=== PATIENT | male | born 1950 | race Caucasian/White ===

== ENCOUNTER → 2018-04-19 | Outpatient (CLI) | payer MEDICARE, OTHER ==
[~2018-04-19] MED LIST: AMOXICILLIN500 M1 PO; ARICEPT 5 MG TAB5 MG PO; ASPIR 8181 MG PO; ASPIRIN EC81 M1 PO; ATORVASTATIN CA40 MG PO; BENADRYL25 MG PO; CARDIZEM CD180 MG PO; CARDIZEM CD240 MG PO; CENTRUM SILVER1 EAC2 PO; CILOSTAZOL 100100 MG PO; D3 + K2 DOTS 11 EACH PO; DEXILANT60 MG PO; DILTIAZEM 24HR120 M2 PO; DULCOLAX5 MG PO; EFFIENT10 MG PO; FISH OIL 1,001000 M1 PO; FISH OIL 1,001000 M2; FISH OIL 1,001000 M2 PO; FISHOIL PO; FLOMAX0.4 MG PO; FOLIC ACID 40400 MC1 PO; GABAPENTIN 100100 MG PO; GABAPENTIN100 MG PO; HEALTHY HEART1 EAC1 PO; IBUPROFEN; IMDUR 30 MG TAB30 M1 PO; IMDUR 60 MG TAB60 M1 PO; INTEGRA PLUS C1 EAC1 PO; KEFLEX500 MG PO; LASIX 40 MG TAB40 M2 PO; LISINOPRIL2.5 MG PO; LOPRESSOR 50 MG50 M1 PO; LOPRESSOR50 PO; MAG-AL PLUS XS30 ML PO; MELATONIN3 MG PO; MILK OF MA2400 MG/10 PO; MIRALAX17 GM PO; MULTIVITAMIN; MULTIVITAMINS PO; NEURONTIN 300300 M1 PO; NEXIUM40 MG PO; NITROGLYCERIN0.4 MG SUBLING; NITROLINGUAL12 GM SPRAY; NORVASC2.5 MG PO; OLANZAPINE10 MG PO; OMEGA-31000 M1 PO; PERCOCET PO; PLAVIX 75 MG TA75 M1 PO; POTASSIUM20 PO; PRILOSEC40 MG PO; PROTONIX40 M1 PO; RANEXA1000 MG PO; RANEXA500 MG PO; SAW PALMETTO450 MG PO; SAW PALMETTO500 MG PO; SPIRIVA; THERA-M CAPLET1 EACH PO; TOPROL XL100 MG PO; TYLENOL325 MG PO; VITAMIN B COMP1 EAC7 PO; VITAMIN B-1100 M1 PO; VITAMIN B-12500 MCG PO; VITAMIN D 5050000 I1 PO; VITAMIN D1000 UNI1 PO; VITAMIN D31000 UNI2 PO; ZANTAC 150MG T150 MG PO; ZOCOR 20 MG TAB20 M1 PO; ZOCOR40 MG PO; ZOFRAN 4 MG ORAL4 M1 DIS; ZYPREXA 5 MG TAB5 M2 PO; ZYPREXA PO; ZYPREXA2.5 MG PO
[2018-04-19 07:55] LABS: CREATININE 1.2 mg/dL (0.6-1.3)
== END ==
LOC: M.LAB 04-11 15:25 → M.CT 07:15 → M.LAB 07:30
PROVIDERS: Surgery
DX: I71.4 Abdominal aortic aneurysm, without rupture (principal); I65.23 Occlusion and stenosis of bilateral carotid arteries; I70.213 Atherosclerosis of native arteries of extremities with intermittent claudication, bilateral legs; I70.0 Atherosclerosis of aorta; I10 Essential (primary) hypertension

== ENCOUNTER 2019-02-13 18:52 | Emergency (ER) | payer MEDICARE, OTHER ==
[~2019-02-13] VITALS: Ht 172.7 cm; Wt 95.3 kg
[~2019-02-13 18:52] MED LIST changes: +FOLIC ACID 1 MG1 MG PO; -FOLIC ACID 40400 MC1 PO; -NITROLINGUAL12 GM SPRAY; +NITROSTAT0.4 M1 SUBLING; +PROAIR HFA8.5 GM PO; +PROSCAR 5MG TABL5 MG PO; +SPIRIVA18 MCG INH; +SPIRONOLACTONE25 M1 PO; +SPIRONOLACTONE25 MG PO; +VITAMIN B-6100 MG PO; +VITAMIN D3400 UNIT PO
[2019-02-13 19:38] LABS: URINE BILIRUBIN NEGATIVE (Negative); URINE BLOOD 3+ (Negative); URINE CLARITY CLOUDY; URINE COLOR YELLOW; URINE GLUCOSE-RANDOM NEGATIVE (Negative); URINE KETONES TRACE (Negative); URINE PROTEIN 2+ (Negative); URINE SPECIFIC GRAVITY 1.025 (1.005-1.030); URINE UROBILINOGEN 0.2 E.U./dl (0.2-1.0)
[2019-02-13 19:40] LABS: URINE LEUKOCYTES-REFLEX 2+ (Negative); URINE NITRITE-REFLEX POSITIVE (Negative)
[2019-02-13 19:48] LABS: SQUAMOUS NONE SEEN /LPF (0-3)
[2019-02-13 19:49] LABS: URINE RBC >20 Many /HPF (0-2); URINE WBC-REFLEX >25 Many /HPF (0-5); WBC CLUMPS Few (None Seen)
[2019-02-13 19:50] LABS: CRYSTALS None Seen /LPF (None Seen); HYALINE CASTS 0-3 Few /LPF (None Seen)
[2019-02-13 19:51] LABS: MUCUS None Seen strn/LPF (None Seen)
[2019-02-13 20:00] LABS: ABSOLUTE BASOPHILS 0.1 thou/uL (0.0-0.2); ABSOLUTE EOSINOPHILS 0.2 thou/uL (0.0-0.7); ABSOLUTE LYMPHOCYTES 1.2 thou/uL (0.8-5.3); ABSOLUTE MONOCYTES 0.8 thou/uL (0.0-1.2); BASOPHILS 0.7 %; EOSINOPHILS 2.5 %; HEMATOCRIT 28.7 % (42.0-52.0); HEMOGLOBIN 9.5 gm/dL (14.0-18.0); LYMPHOCYTES 12.5 %; MCH 24.8 pg (26.0-34.0); MCV 75.1 fL (80.0-100.0); MONOCYTES 8.7 %; MPV 7.8 fl. (7.2-11.1); NUCLEATED RBCS 0 /100WBC; PLATELET COUNT* 368 thou/uL (150-400); POLYS 75.6 %; RBC 3.82 mil/uL (4.50-6.00); WBC 9.3 thou/uL (4.0-11.0)
[2019-02-13 20:08] LABS: CALCIUM 8.5 mg/dL (8.5-10.1)
[2019-02-13 20:12] LABS: ALBUMIN 2.5 g/dL (3.4-5.0); TOTAL BILIRUBIN 0.5 mg/dL (<0.1-1.0); TOTAL PROTEIN 6.8 g/dL (6.4-8.2)
[2019-02-13] MEDS ORDERED: BACTRIM DS TAB1 EACH PO (20:23)
[2019-02-13 20:34] VITALS: BP 125/64
== END 2019-02-13 20:40 | disposition home or self-care (01) ==
LOC: M.ERS 18:52
PROVIDERS: Nurse Practitioner Family
DX: N39.0 Urinary tract infection, site not specified (principal); E87.6 Hypokalemia; I73.9 Peripheral vascular disease, unspecified; J44.9 Chronic obstructive pulmonary disease, unspecified; F03.90 Unspecified dementia, unspecified severity, without behavioral disturbance, psychotic disturbance, mood disturbance, and anxiety; I25.10 Atherosclerotic heart disease of native coronary artery without angina pectoris; Z87.891 Personal history of nicotine dependence; Z91.041 Radiographic dye allergy status; Z88.8 Allergy status to other drugs, medicaments and biological substances; Z90.2 Acquired absence of lung [part of]

== ENCOUNTER → 2019-04-30 | Outpatient (CLI) | payer MEDICARE, OTHER ==
[~2019-04-30] MED LIST changes: +BACTRIM DS TAB1 EACH PO
--- NOTE | 2019-04-30 17:26 | CARDNUC ---
[place] [address] CARDIAC NUCLEAR IMAGING REPORT Name: THERESE HANSON Room: [facility]#: [id number] Admission: 04/30/19 Attend Phys: Gordy Case, Discharge: Date of : 54 Date of Service: 04/30/19 1725 Report #: [id number] THIS REPORT FOR: //name// ADDENDUM APPROVED REPORT Study performed: 04/30/2019 09:44:52 Exam: Nuclear Stress Test Indication: Chest pain, Dyspnea Patient Location: Out-Patient Stress Tech: Francesca Gutierrez Stress Nurse: Marisela Casey R.N. Ht: 5 ft 8 in Wt: 192 lbs BSA: 2.01 m2 BMI: 29.18 Medical History Medical History: Angina, CAD s/p stent, Fatigue, HTN, Hyperlipidemia, SOB, Weakness, Aortic Aneurysm, Dementia, upper 1/3 right lung removed r/t cancer, PVD, past smoker, uses E-Cigs with no nicotine. Medications: ASA 81 Mg, Atorvastatin, Pletal, Cardizem, Lasix, Imdur, Ranexa, Metoprolol, NTG, Effient. Allergies: Iodine, Demerol, Contrast Dyes. Cardiac Risk Factors: Age, FHX of CAD, HTN, Hyperlipidemia, SOB, Past Smoker, PVD, E-Cigarettes without Nicotine. Previous Cardiac Procedures: PCI Pretest Chest Pain Characteristics: No chest pain Exercise History: Sedentary Physical Disabilities: Dementia, unsteady/unstable gait, involuntary tremors. Meds Held (24 hrs): Pletal, Imdur, Metoprolol, Ranexa, NTG. Stress Test Details Stress Test: Pharmacologic stress testing performed using 0.4 mg of regadenoson per 5 mL given IV over 10 seconds. Reason for pharmacologic stress test: Unsteady/unstable gait, dementia, involuntary tremors.. HR Resting HR: 52 bpm Max Heart Rate (APMHR): 154 bpm Max HR Achieved: 77 bpm Target HR (85% APMHR): 130 bpm % of APMHR: 50 Recovery HR: 67 [place] [address] CARDIAC NUCLEAR IMAGING REPORT Name: THERESE HANSON Room: [facility]#: [id number] Admission: 04/30/19 Attend Phys: Gordy Case, Discharge: Date of : 54 Date of Service: 04/30/19 1725 Report #: [id number] Resting BP: 134/69 mmHg Max BP: 125/56 mmHg ECG Resting ECG: Sinus Rhythm Stress ECG: Sinus Rhythm ST Change: None Arrhythmia: None Recovery ECG: Sinus Rhythm Recovery ST Change: None Recovery Arrhythmia: None Clinical Reason for Termination: Completed protocol Stress Symptoms: Dyspnea Exercise duration: 00 min 00 sec Exercise capacity: 1.00 METs The patient had no significant cardiac symptoms with Lexiscan infusion. Nurse Comments 68 year old male presented with recent HX of CP and SOA along with Dementia, Unsteady gait and involuntary tremors. Patient perform Lexiscan Stress Test in supine position due to tremors causing artifact on ECG. Test well tolerated. Recovery unremarkable with PO caffeine, effective. Patient was escorted via wheelchair by staff and his to Nuclear Medicine for images. Patient was stable with no complaints at that time. Stress ECG Conclusion The baseline 12-lead EKG show sinus rhythm without significant ST or T wave abnormality. EKGs obtained during and post Lexiscan infusion show sinus rhythm with no significant ST or T wave changes when compared to baseline. There were no stress-induced arrhythmias. NM EXAM: Myocardial Perfusion REST/STRESS Imaging Protocol: Rest Tc-99m/Stress Tc-99m 1 day Resting Data Rest SPECT myocardial perfusion imaging was performed in supine position 30 minutes following the intravenous injection of 11.0 mCi of Tc-99m Sestamibi. Time of rest injection: 08:10 The images were gated to evaluate regional wall motion and calculate left ventricular ejection fraction. Administration Route: [place] [address] CARDIAC NUCLEAR IMAGING REPORT Name: THERESE HANSON Room: [facility]#: [id number] Admission: 04/30/19 Attend Phys: Gordy Case, Discharge: Date of : 54 Date of Service: 04/30/19 1725 Report #: [id number] Administration Site: Right AC Pharmacologic Stress Pharmacologic stress test was performed by injecting Regadenoson 0.4 mg IV push followed by the intravenous injection of 33.4 mCi of Tc-99m Sestamibi. Pharmacologic stress test performed using dobutamine initiated at 5 mcg/kg/min titrated sequentially at 10, 20, 30 and 40 mcg/kg/min to target heart rate. The radioisotope is given IV when 85% of MHR is maintained for 1 min using ; mCi of Time of stress injection: 09:45 Administration Route: IV Administration Site: Right AC Heart Rate at time of stress injection: 77 bpm. Gated Stress SPECT was performed 40 minutes after stress injection. The images were gated to evaluate regional wall motion and calculate left ventricular ejection fraction. Prone imaging was performed. Study Quality Study: Good Artifact: Mild Diaphragmatic artifact Study Data At rest, the left ventricular ejection fraction was 79%.. Post stress, the left ventricular ejection was 75%.. TID = 0.97. Perfusion Perfusion images obtained in the supine position at rest and post stress show moderately photopenia involving the basal to distal inferior wall that resolves partially with post stress prone imaging. There were no reversible defects identified. Wall Motion Normal left ventricular wall motion. Nuclear Conclusion ECG Findings: negative for ischemia Clinical Findings: negative for ischemia Nuclear Findings: negative for ischemia Exercise Capacity: not assessed Left Ventricular Function: normal Risk Study: low Perfusion study showed no reversible [place] [address] CARDIAC NUCLEAR IMAGING REPORT Name: THERESE HANSON Room: [facility] [place]#: [id number] Admission: 04/30/19 Attend Phys: Gordy Case, Discharge: Date of : 54 Date of Service: 04/30/191724 Report #: [id number] Defects of the inferior wall seen at rest and stress are likely due to diaphragmatic attenuation artifact. Global LV systolic function is normal. This is not a high risk study. <Conclusion> The baseline 12-lead EKG show sinus rhythm without significant ST or T wave abnormality. EKGs obtained during and post Lexiscan infusion show sinus rhythm with no significant ST or T wave changes when compared to baseline. There were no stress-induced arrhythmias. <ELECTRONICALLY SIGNED> By: Gordy Case MD, [facility] 04/30/195 24 24 Gordy Case MD, FACC /INF
== END ==
LOC: M.NUC 04-24 12:58
DX: I25.118 Atherosclerotic heart disease of native coronary artery with other forms of angina pectoris (principal); I10 Essential (primary) hypertension; E78.5 Hyperlipidemia, unspecified; F03.90 Unspecified dementia, unspecified severity, without behavioral disturbance, psychotic disturbance, mood disturbance, and anxiety; F17.210 Nicotine dependence, cigarettes, uncomplicated; Z95.820 Peripheral vascular angioplasty status with implants and grafts; Z79.899 Other long term (current) drug therapy; Z88.8 Allergy status to other drugs, medicaments and biological substances; Z91.041 Radiographic dye allergy status

== ENCOUNTER 2019-08-13 08:31 | Emergency (ER) | payer MEDICARE, OTHER ==
[~2019-08-13] VITALS: Ht 172.7 cm; Wt 86.2 kg
[~2019-08-13 08:31] MED LIST changes: -FOLIC ACID 1 MG1 MG PO; +FOLIC ACID1 MG PO; +LIPITOR40 MG PO
[2019-08-13] MEDS ORDERED: DILTIAZEM ER180 M2 PO (08:40)
[2019-08-13 08:57] LABS: ABSOLUTE EOSINOPHILS 0.1 thou/uL (0.0-0.7); ABSOLUTE LYMPHOCYTES 1.4 thou/uL (0.8-5.3); ABSOLUTE MONOCYTES 0.6 thou/uL (0.0-1.2); ABSOLUTE NEUTROPHILS 3.5 thou/uL (1.6-8.1); BASOPHILS 0.8 %; EOSINOPHILS 2.1 %; HEMOGLOBIN 10.4 gm/dL (14.0-18.0); LYMPHOCYTES 25.3 %; MCHC 33.6 g/dL (28.0-37.0); MCV 71.4 fL (80.0-100.0); MONOCYTES 9.8 %; MPV 7.4 fl. (7.2-11.1); NUCLEATED RBCS 0 /100WBC; PLATELET COUNT* 359 thou/uL (150-400); RBC 4.34 mil/uL (4.50-6.00); RDW-CV 16.7 % (10.5-14.5); WBC 5.7 thou/uL (4.0-11.0)
[2019-08-13 09:03] LABS: CREATININE 1.2 mg/dL (0.6-1.3); POTASSIUM 3.5 mmol/L (3.5-5.1)
[2019-08-13 09:10] LABS: ALBUMIN 3.4 g/dL (3.4-5.0); APTT 30.3 Seconds (25.0-31.3); CK-MB MASS 1.1 ng/mL (<0.5-3.6); INR 1.1; MAGNESIUM 1.9 mg/dL (1.8-2.4); PROTIME 11.5 Seconds (9.20-11.50); TOTAL BILIRUBIN 0.5 mg/dL (<0.1-1.0); TOTAL PROTEIN 7.2 g/dL (6.4-8.2)
[2019-08-13 09:45] LABS: ANISOCYTOSIS 1+; PLATELET ESTIMATE ADEQUATE; POIKILOCYTOSIS 1+
[2019-08-13 11:46] VITALS: BP 131/77
--- NOTE | 2019-08-13 15:39 | EKG ---
[place] [address] ELECTROCARDIOGRAM REPORT Name: THERESE HANSON Room: [facility]#: [id number] Admission: 08/13/19 Attend Phys: Discharge: 08/13/19 Date of : 54 Report #: [id number] THIS REPORT FOR: //name// [facility] ED Test Date: 2019-08-13 Test Time: 08:36:56 Pat Name: THERESE HANSON Department: Room: Gender: M Liquefier: : 1950 Requested By: Biju Merritt Order Number: [id number] MD: Twin Lopez Measurements Intervals [place] Rate: 61 P: 28 NY: 232 QRS: -26 QRSD: 105 T: -39 QT: 463 QTc: 467 Interpretive Statements Sinus rhythm Atrial premature complex Prolonged [place] interval Borderline left axis deviation Borderline repolarization abnormality Compared to ECG 01/14/2019 09:01:34 Atrial premature complex(es) now present T-wave abnormality no longer present Electronically Signed On 08-13-2019 15:39:21 TOWBOAT CAPTAIN by Twin Lopez [email or web address] <ELECTRONICALLY SIGNED> By: Twin Lopez MD, [facility] 08/13/19 1539 0836 0836 Twin Lopez MD, [facility] /EPI
== END 2019-08-13 11:48 | disposition home or self-care (01) ==
LOC: M.ERS 08:31
PROVIDERS: Family Medicine
DX: R07.89 Other chest pain (principal); I25.10 Atherosclerotic heart disease of native coronary artery without angina pectoris; J44.9 Chronic obstructive pulmonary disease, unspecified; Z95.2 Presence of prosthetic heart valve; Z91.041 Radiographic dye allergy status; Z88.8 Allergy status to other drugs, medicaments and biological substances; Z87.891 Personal history of nicotine dependence

== ENCOUNTER 2019-08-23 07:18 | Inpatient (IN) | payer MEDICARE, OTHER ==
[~2019-08-23] VITALS: Ht 152.4 cm; Wt 86.2 kg
[2019-08-23] VITALS (17 sets, daily range): BP systolic 121–155; BP diastolic 66–88
[~2019-08-23 07:18] MED LIST changes: +DILTIAZEM ER180 M2 PO
[2019-08-23 07:42] LABS: ABSOLUTE BASOPHILS 0.1 thou/uL (0.0-0.2); ABSOLUTE EOSINOPHILS 0.1 thou/uL (0.0-0.7); ABSOLUTE LYMPHOCYTES 1.4 thou/uL (0.8-5.3); ABSOLUTE MONOCYTES 0.5 thou/uL (0.0-1.2); ABSOLUTE NEUTROPHILS 3.7 thou/uL (1.6-8.1); BASOPHILS 1.1 %; EOSINOPHILS 2.4 %; HEMATOCRIT 31.9 % (42.0-52.0); HEMOGLOBIN 10.6 gm/dL (14.0-18.0); LYMPHOCYTES 24.2 %; MCH 23.8 pg (26.0-34.0); MCHC 33.1 g/dL (28.0-37.0); MONOCYTES 9.5 %; MPV 7.7 fl. (7.2-11.1); NUCLEATED RBCS 0 /100WBC; PLATELET COUNT* 286 thou/uL (150-400); POLYS 62.8 %; RBC 4.43 mil/uL (4.50-6.00); RDW-CV 16.8 % (10.5-14.5); WBC 5.8 thou/uL (4.0-11.0)
[2019-08-23 07:48] LABS: CREATININE 1.2 mg/dL (0.6-1.3); POTASSIUM 3.8 mmol/L (3.5-5.1)
[2019-08-23 08:02] LABS: ALBUMIN 3.5 g/dL (3.4-5.0); APTT 30.1 Seconds (25.0-31.3); CK-MB MASS 0.8 ng/mL (<0.5-3.6); INR 1.1; MAGNESIUM 1.9 mg/dL (1.8-2.4); PROTIME 11.4 Seconds (9.20-11.50); TOTAL BILIRUBIN 0.4 mg/dL (<0.1-1.0); TOTAL PROTEIN 7.5 g/dL (6.4-8.2)
[2019-08-23 08:27] LABS: CHOLESTEROL 119 mg/dL (<200); HDL CHOLESTEROL 50 mg/dL (>40); LDL CHOLESTEROL 50 mg/dL (<100); TC:HDL 2.4 Ratio (Not establshd); TRIGLYCERIDE 97 mg/dL (<150); VLDL 19 mg/dL (<40)
[2019-08-23 08:28] LABS: SERUM ASSESSMENT Clear
--- NOTE | 2019-08-23 15:52 | CARD ---
[address] [address] CARDIAC CATH REPORT Name: THERESE HANSON Room: [address] IN .R.#: [id number] Admission: 08/23/19 Attend Phys: Kelli barba Lawrence Discharge: Date of : 54 Report #: [id number] THIS REPORT FOR: //name// APPROVED REPORT Study performed: 08/23/2019 12:24:33 Patient Details Patient Status: In-Patient Room #: Event Personnel Twin Lopez MD Procedures Performed Left heart catheterization left selective coronary artery and percutaneous intervention with deployment of drug-eluting stent at site of 90% focal mid right coronary stenosis Indication Unstable angina Risk Factors Hypercholesterolemia, Hypertension Previous Procedures/Diagnoses Previous PCI Admission/Lab Medications/Medications given during procedure Angiomax bolus and infusion Procedure Narrative The patient was brought electively to the Cardiac Catheterization Laboratory and was prepped and draped in a sterile manner. The right femoral was infiltrated with 2% Lidocaine subcutaneous anesthesia. A 6 Polish sheath was inserted into the right femoral artery. Coronary angiography was performed using coronary diagnostic catheters. The right coronary system was accessed and visualized with a Diagnostic catheter. The left ventricle was accessed and visualized with a Diagnostic catheter. Left ventricular/Aortic Valve gradient assessed via catheter pullback. Left ventriculogram was performed in QUARLES projection. Pre-demployment femoral angiogram was performed . Closure device was deployed with a 6 Fr Angioseal. There was no hematoma. Diagnostic Cath [address] [address] CARDIAC CATH REPORT Name: THERESE HANSON Room: [address] IN [facility].#: [id number] Admission: 08/23/19 Attend Phys: Kelli Liu Discharge: Date of : 54 Report #: [id number] Left Main 0% narrowing LAD 20% ostial and 40% mid vessel narrowing Circumflex 40% narrowing of the proximal portion of the first marginal branch Right Coronary Large dominant right coronary artery with multiple stents throughout; there was 90% stenosis in the midportion of the vessel; there were 30% proximal 40% distal right coronary narrowings Left Ventriculography The left ventricle is normal in size with normal contractility. The left ventricular ejection fraction is estimated to be 60%. Left ventricular wall motion abnormalities are not present. There is no mitral insufficiency. Hemodynamics The aortic pressure is 140/70 mmHg with a mean of 82 mmHg. The left ventricular end diastolic pressure is 14 mmHg. There was no gradient across the aortic valve upon pullback. PCI Technique Lesion Anticoagulation was achieved with Angiomax. Percutaneous coronary intervention was performed on the mid right coronary artery. The lesion stenosis prior to intervention was 90% with ALLIE 3 flow. BALLOON DILATION A Balloon catheter 2.0 x 12, 2.75 x 12 Trek was inserted and inflated up to 18atm for 15seconds. STENT DEPLOYMENT A drug-eluting stent 2.0x15 deisi was inserted and inflated up to 18atm for 15seconds. POST STENT DEPLOYMENT BALLOON DILATION A Balloon catheter 3.0 x 12 NC trek was inserted and inflated up to 18-20atm for 15seconds. Final angiography reveals 10 % stenosis with ALLIE 3 flow. COMMENTS Percutaneous coronary intervention was complex by virtue of marked calcification and proximal tortuosity requiring a scot wire with significant manipulation to achieve satisfactory [place] [address] CARDIAC CATH REPORT Name: THERESE HANSON Room: [address] IN ..#: [id number] Admission: 08/23/19 Attend Phys: Kelli Liu Discharge: Date of : 54 Report #: [id number] Conclusion #1 significant coronary artery disease characterized by the following: A large dominant right coronary artery with multiple stents throughout and diffuse calcification and proximal tortuosity; there is 90% focal mid right coronary stenosis B 20% ostial with 40% mid LAD narrowing C 40% narrowing of the proximal portion of the prominent marginal branch of the nondominant circumflex #2 normal left ventricular systolic function,ejection fraction 60% #3 minimal elevation of left ventricular end-diastolic pressure at rest #4 successful percutaneous coronary intervention with deployment of drug-eluting stent at the site of 90% mid right coronary stenosis with 10% residual narrowing and ALLIE-3 flow to the distal vessel Recommendations Cardiac Risk Reduction Program Aggressive Medical Therapy Medications Administered Aspirin (any) Prasugrel Diagnostic Cath Approved by: Twin Lopez MD Date/Time: 08/23/2019 15:49:39 <ELECTRONICALLY SIGNED> By: Twin Lopez MD, [facility] 08/23/19 1552 1552 1552Johoracio Lopez MD, FAC /INF
[2019-08-24] VITALS: BP 140/75
[2019-08-24 03:48] VITALS: BP 169/83
[2019-08-24 05:02] LABS: HEMATOCRIT 31.9 % (42.0-52.0); HEMOGLOBIN 10.5 gm/dL (14.0-18.0); MCH 23.9 pg (26.0-34.0); MCHC 32.9 g/dL (28.0-37.0); MCV 72.5 fL (80.0-100.0); MPV 8.3 fl. (7.2-11.1); RBC 4.4 mil/uL (4.50-6.00); RDW-CV 17.4 % (10.5-14.5); WBC 6.4 thou/uL (4.0-11.0)
[2019-08-24 05:24] LABS: ALBUMIN 3.6 g/dL (3.4-5.0); CALCIUM 9.5 mg/dL (8.5-10.1); CREATININE 1.1 mg/dL (0.6-1.3); POTASSIUM 3.3 mmol/L (3.5-5.1); TOTAL BILIRUBIN 0.5 mg/dL (<0.1-1.0); TOTAL PROTEIN 7.6 g/dL (6.4-8.2); TROPONIN-I LEVEL 0.07 ng/mL (<0.06)
[2019-08-24 08:00] VITALS: BP 144/76
--- NOTE | 2019-08-24 11:10 | CON ---
[address] [address] CONSULTATION Name: THERESE HANSON Room: [address] IN M.R.#: [id number] Admission: 08/23/19 Attend Phys: Kelli Liu Discharge: Date of : 54 Report #: [id number] THIS REPORT FOR: //name// CC: Kelli Case DATE OF SERVICE: 08/23/2019 CARDIOLOGY CONSULTATION HISTORY OF PRESENT ILLNESS: The patient is a 68-year-old white male who came to the Emergency Room last night complaining of chest pain. The patient has an extensive and complicated past medical history. He has had several heart catheterizations through the years. It was not felt to be amenable to intervention and he was treated medically. However, in 2014 the patient was admitted to [facility] on the [place] and had 4 coronary artery stents placed in his right coronary artery. He actually had a repeat cardiac catheterization by Dr. Lopez in June 2017 here at [place] that showed a 75% mid and 80% distal right coronary artery in-stent restenosis. Dr. Lopez then performed successful balloon angioplasty. Apparently, no stents were placed at that time. Recently, the patient has been having frequent chest pain. He underwent a nuclear stress test in April that showed diaphragmatic attenuation, but no significant ischemia, ejection fraction 79%. Echocardiogram in January showed an ejection fraction of 60%. He actually just saw my nurse practitioner 4 days ago, who recommended that the patient be scheduled for repeat angiogram next week. However, the patient states that last night he had a prolonged episode of chest pain and finally came to the Emergency Room. He was admitted for further evaluation and treatment. He denies the pain being related to food. There was radiation to his arm. It made him short of breath. He has had no bleeding. He has no significant exertional dyspnea, palpitations or syncope. PAST MEDICAL HISTORY: Significant for previous abdominal aortic aneurysm. He had previous aortobifemoral bypass surgery in 2007. He has carotid artery stenosis and is followed by Dr. Moralez in the Vascular Clinic. He denied any leg pain. He, apparently also has an aneurysm of the thoracic aortic vessel. He has had previous back surgery, hip surgery. He had a previous subdural hematoma and required sammy drainage years ago. He has had tonsillectomy. He has a history of hypertension, hyperlipidemia. No history of diabetes. MEDICATIONS: Include aspirin, Lipitor, Pletal, diltiazem, Aricept, Proscar, Lasix, Neurontin, Imdur, metoprolol, omeprazole, Effient, Ranexa, Flomax. ALLERGIES: HE [place] [address] CONSULTATION Name: MARGIETHERESE REID ERIK Room: [address] IN M.R.#: [id number] Admission: 08/23/19 Attend Phys: Kelli Liu Discharge: Date of : 54 Report #: [id number] FAMILY HISTORY: Positive for heart disease. SOCIAL HISTORY: He is . He and his live in [place]. He is a retired police radio dispatcher. He used to smoke 2 packs of cigarettes a day for 40 years, quit in 2013. Has a history of alcohol abuse, went through detox in 2013. REVIEW OF SYSTEMS: He has a history of dementia. No history of asthma, peptic ulcer disease, liver disease, kidney disease. He had a lung cancer removed at [facility] in February of this year. PHYSICAL EXAMINATION: GENERAL: Revealed an elderly male, appeared in no distress. VITAL SIGNS: Blood pressure 140/70, pulse 60. HEENT: Mucous membranes moist. He was anicteric. Conjunctivae are pink. NECK: Supple. No jugular vein distention. CHEST: Clear to auscultation. CARDIOVASCULAR: Regular rate and rhythm. ABDOMEN: Soft. EXTREMITIES: No edema. SKIN: Cool and dry. NEUROLOGIC: Nonfocal. His ECG this morning shows a sinus rhythm, nonspecific ST-segment changes. His workup in the Emergency Room this morning showed a chest x-ray that showed no acute abnormality, actually he had a CT scan of the chest using a PE protocol. Carotid Doppler study done in July showed plaque in the right carotid, moderate plaque in the left carotid. LABORATORY DATA: Sodium 141, creatinine 1.2. Troponin 0.06. Cholesterol 119, triglyceride 97, HDL 50, LDL 50. His white blood cell count 5.8, hemoglobin 10.6. IMPRESSION AND RECOMMENDATIONS: 1. Crescendo angina. Recommend cardiac catheterization. The patient is on aspirin and Effient. 2. Peripheral arterial disease. The patient had previous aortobifemoral bypass. 3. Previous carotid stenosis, asymptomatic. 4. Previous subdural hematoma, treated with sammy hole drainage. 5. Hypertension. The patient is on a calcium teagan and beta teagan. 6. Hyperlipidemia. The patient is on a statin drug. 7. History of lung cancer. The patient had surgery in February of this year. 8. Dementia. The patient is followed by Neurology. 9. [place] [address] CONSULTATION Name: THERESE HANSON Room: [address] IN [facility].#: [id number] Admission: 08/23/19 Attend Phys: Kelli Liu Discharge: Date of : 54 Report #: [id number] 10. History of alcohol abuse. The patient no longer abuses alcohol. 11. CONTRAST REACTION. We will pretreat the patient with steroids. <ELECTRONICALLY SIGNED> By: Cade Browne MD, FACC 08/24/19 1110 1008 12Cade Browne MD, FACC /nt
--- NOTE | 2019-08-24 11:17 | EKG ---
[place] [address] ELECTROCARDIOGRAM REPORT Name: THERESE HANSON Room: [address] ADM IN M.R.#: [id number] Admission: 08/23/19 Attend Phys: Kelli Liu Discharge: Date of : 54 Report #: [id number] THIS REPORT FOR: //name// [facility] ED Test Date: 2019-08-23 Test Time: 07:22:39 Pat Name: THERESE HANSON Department: Room: [address] Gender: M Business Reporter: : 1950 Requested By: Twin Lopez Order Number: [id number] Jeanna MD: Cade Browne Measurements Intervals [place] Rate: 55 P: 9 TN: 263 QRS: -26 QRSD: 109 T: 24 QT: 502 QTc: 481 Interpretive Statements Sinus bradycardia artifact noted Prolonged TN interval Borderline left axis deviation Compared to ECG 08/13/2019 08:36:56 suparaventricular premature complex(es) not seen Electronically Signed On 08-24-2019 11:17:21 A OPERATOR by Cade Browne [email or web address] <ELECTRONICALLY SIGNED> By: Cade Browne MD, FACC 08/24/19 1117 0722 0722 Cade Browne MD, FAC /EPI
--- NOTE | 2019-08-24 11:21 | EKG ---
[place] [address] ELECTROCARDIOGRAM REPORT Name: THERESE HANSON Room: [address] ADM IN M.R.#: [id number] Admission: 08/23/19 Attend Phys: Kelli Liu Discharge: Date of : 54 Report #: [id number] THIS REPORT FOR: //name// [facility] Test Date: 2019-08-23 Test Time: 15:37:02 Pat Name: THERESE HANSON Department: Room: [facility] Gender: Trench Digger Helper: ALEJANDRO : 1950 Requested By: Biju Merritt Order Number: [id number] MD: Cade Browne Measurements Intervals [place] Rate: 62 P: 41 NC: 286 QRS: -26 QRSD: 115 T: 25 QT: 467 QTc: 475 Interpretive Statements Sinus rhythm Prolonged NC interval Nonspecific intraventricular conduction delay Borderline low voltage, extremity leads Compared to ECG 08/13/2019 08:36:56 rate has increased Electronically Signed On 08-24-2019 11:21:22 LEARNING SUPPORT SERVICES DIRECTOR by Cade Browne [email or web address] <ELECTRONICALLY SIGNED> By: Cade Browne MD, FACC 08/24/19 1121 1537 1537 Cade Browne MD, [facility] /EPI
--- NOTE | 2019-08-24 11:26 | EKG ---
[place] [address] ELECTROCARDIOGRAM REPORT Name: THERESE HANSON Room: [address] ADM IN M.R.#: [id number] Admission: 08/23/19 Attend Phys: Kelli Liu Discharge: Date of : 54 Report #: [id number] THIS REPORT FOR: //name// [facility] Test Date: 2019-08-24 Test Time: 08:30:26 Pat Name: THERESE HANSON Department: Room: [address] Gender: M Bucket Turner: MARC : 1950 Requested By: Twin Lopez Order Number: [id number] MD: Caed Browne Measurements Intervals [place] Rate: 79 P: 0 NY: 285 QRS: -29 QRSD: 104 T: 0 QT: 426 QTc: 489 Interpretive Statements Sinus rhythm Prolonged [place] interval Borderline left axis deviation Borderline T abnormalities, inferior leads Baseline wander in lead(s) V5 Compared to ECG 08/13/2019 08:36:56 no change Electronically Signed On 08-24-2019 11:26:34 TEMPORARY HELP AGENCY REFERRAL CLERK by Cade Browne [email or web address] <ELECTRONICALLY SIGNED> By: Cade Browne MD, FACC 08/24/19 1126 0830 Cade Browne MD, [facility] /EPI
[2019-08-24 13:31] VITALS: BP 158/83
[2019-08-24 16:12] VITALS: BP 119/60
[2019-08-24 20:00] VITALS: BP 143/73
[2019-08-25 00:20] VITALS: BP 144/63
[2019-08-25 04:00] VITALS: BP 131/67
[2019-08-25 07:54] VITALS: BP 147/70
[2019-08-25 09:32] VITALS: BP 147/70
[2019-08-25 10:59] VITALS: BP 147/70
--- NOTE | 2019-08-25 17:02 | EKG ---
[place] [address] ELECTROCARDIOGRAM REPORT Name: THERESE HANSON Room: [address] DIS IN M.R.#: [id number] Admission: 08/23/19 Attend Phys: Kelli Liu Discharge: 08/25/19 Date of : 54 Report #: [id number] THIS REPORT FOR: //name// [facility] Test Date: 2019-08-24 Test Time: 03:32:36 Pat Name: THERESE HANSON Department: Room: [address] Gender: M Coal Gasification Technician: RP05 : 1950 Requested By: Twin Lopez Order Number: [id number] Jeanna MD: Cade Browne Measurements Intervals [place] Rate: 82 P: -52 AL: 285 QRS: -22 QRSD: 101 T: 18 QT: 425 QTc: 497 Interpretive Statements Sinus or ectopic atrial rhythm Prolonged [place] interval Borderline left axis deviation Borderline low voltage, extremity leads Borderline prolonged QT interval Compared to ECG 08/23/2019 15:37:02 no change Electronically Signed On 08-25-2019 17:02:13 HAT CONDITIONER by Cade Browne [email or web address] <ELECTRONICALLY SIGNED> By: Cade Browne MD, [facility] 08/25/19 1702 1 1 Cade Browne MD, [facility] /EPI
== END 2019-08-25 11:15 | disposition home or self-care (01) | DRG 247 ==
LOC: M.ERS 07:18 → M.TBA-ER 08:06 → M.2W 08:06
PROVIDERS: Family Medicine; Internal Medicine; ADMIT Family Medicine
PROC: 027034Z Dilation of Coronary Artery, One Artery with Drug-eluting Intraluminal Device, Percutaneous Approach (ICD-10-PCS; principal; 2019-08-23)
PROC: 4A023N7 Measurement of Cardiac Sampling and Pressure, Left Heart, Percutaneous Approach (ICD-10-PCS; principal; 2019-08-23)
PROC: B41F1ZZ Fluoroscopy of Right Lower Extremity Arteries using Low Osmolar Contrast (ICD-10-PCS; principal; 2019-08-23)
PROC: B2151ZZ Fluoroscopy of Left Heart using Low Osmolar Contrast (ICD-10-PCS; principal; 2019-08-23)
PROC: B2111ZZ Fluoroscopy of Multiple Coronary Arteries using Low Osmolar Contrast (ICD-10-PCS; principal; 2019-08-23)
DX: I25.110 Atherosclerotic heart disease of native coronary artery with unstable angina pectoris (principal); I10 Essential (primary) hypertension; E78.5 Hyperlipidemia, unspecified; F03.90 Unspecified dementia, unspecified severity, without behavioral disturbance, psychotic disturbance, mood disturbance, and anxiety; I73.9 Peripheral vascular disease, unspecified; J44.9 Chronic obstructive pulmonary disease, unspecified; F04 Amnestic disorder due to known physiological condition; F10.11 Alcohol abuse, in remission; I71.2 Thoracic aortic aneurysm, without rupture; Z95.5 Presence of coronary angioplasty implant and graft; Z90.2 Acquired absence of lung [part of]; Z85.118 Personal history of other malignant neoplasm of bronchus and lung; Z88.8 Allergy status to other drugs, medicaments and biological substances; Z91.041 Radiographic dye allergy status; Z79.899 Other long term (current) drug therapy; Z87.891 Personal history of nicotine dependence; Z98.1 Arthrodesis status; Z80.8 Family history of malignant neoplasm of other organs or systems; Z82.49 Family history of ischemic heart disease and other diseases of the circulatory system; Z79.82 Long term (current) use of aspirin

== ENCOUNTER 2019-08-26 11:15 | Inpatient (IN) | payer MEDICARE, OTHER ==
[~2019-08-26] VITALS: Ht 152.4 cm; Wt 93.0 kg
[2019-08-26 11:18] VITALS: BP 121/61
[2019-08-26 11:41] LABS: ABSOLUTE EOSINOPHILS 0.1 thou/uL (0.0-0.7); ABSOLUTE LYMPHOCYTES 1.8 thou/uL (0.8-5.3); ABSOLUTE NEUTROPHILS 5.2 thou/uL (1.6-8.1); BASOPHILS 0.6 %; EOSINOPHILS 1.2 %; HEMATOCRIT 28.1 % (42.0-52.0); HEMOGLOBIN 9.4 gm/dL (14.0-18.0); LYMPHOCYTES 21.8 %; MCHC 33.4 g/dL (28.0-37.0); MONOCYTES 12.1 %; MPV 7.5 fl. (7.2-11.1); NUCLEATED RBCS 0 /100WBC; PLATELET COUNT* 284 thou/uL (150-400); POLYS 64.3 %; WBC 8.1 thou/uL (4.0-11.0)
[2019-08-26 11:52] LABS: CALCIUM 8.4 mg/dL (8.5-10.1); CREATININE 1.2 mg/dL (0.6-1.3); POTASSIUM 3.6 mmol/L (3.5-5.1)
[2019-08-26 11:53] LABS: APTT 27.8 Seconds (25.0-31.3); INR 1.1; PROTIME 11.4 Seconds (9.20-11.50)
[2019-08-26 12:05] LABS: ALBUMIN 3.2 g/dL (3.4-5.0); CK-MB MASS 1.1 ng/mL (<0.5-3.6); MAGNESIUM 1.8 mg/dL (1.8-2.4); TOTAL BILIRUBIN 0.3 mg/dL (<0.1-1.0); TOTAL PROTEIN 6.9 g/dL (6.4-8.2)
[2019-08-26 14:50] VITALS: BP 128/62
[2019-08-26 15:15] VITALS: BP 143/74
--- NOTE | 2019-08-26 16:21 | NUR ---
PT ADMITED ON TELE FLOOR ON 2 L NC, AOX4, FORGETFUL, TRACING SINUS LUBNA ON TERMITE EXTERMINATOR HELPER. O2 SAT 98% , VSS. ADMISSION ASSESSMENT AND HX TAKEN AT BEDSIDE. HEPARIN BOLUS GIVEN ORDERED. SEE EMAR. HEPARIN DRIP STARTED AT 1000UNITS PER HOUR. R AC IV PATENT. FALL PRECAUTION IN PLACE. CALL LIGHT AT REACH. PT DENIES PAIN, N/V WILL CONTINUE TO MONITOR.
--- NOTE | 2019-08-26 17:10 | EKG ---
[place] [address] ELECTROCARDIOGRAM REPORT Name: THERESE HANSON Room: [address] ADM IN M.R.#: [id number] Admission: 08/26/19 Attend Phys: Jaja Potts Discharge: Date of : 54 Report #: [id number] THIS REPORT FOR: //name// [facility] ED Test Date: 2019-08-26 Test Time: 11:20:13 Pat Name: THERESE HANSON Department: Room: [facility] Gender: M High Density Talc Coater Operator: CHANO : 1950 Requested By: Biju Merritt Order Number: [id number] MD: Gordy Case Measurements Intervals [place] Rate: 57 P: -41 DE: 217 QRS: -43 QRSD: 98 T: -7 QT: 455 QTc: 443 Interpretive Statements Sinus rhythm with first-degree AV block Left axis deviation Borderline repolarization abnormality Compared to ECG 08/24/2019 08:30:26 T-wave abnormality no longer present Electronically Signed On 08-26-2019 17:10:26 ADVERTISING ACCOUNT REPRESENTATIVE by Gordy Case [email or web address] <ELECTRONICALLY SIGNED> By: Gordy Case MD, FACC 08/26/19 1710 1120 1120 Gordy Case MD, FACC /EPI
--- NOTE | 2019-08-26 17:35 | NUR ---
APTT LAB ORDERED TO BE DRAWN AT 2296
[2019-08-26 20:00] VITALS: BP 116/53
[2019-08-27] VITALS: BP 132/79
[2019-08-27 04:00] VITALS: BP 121/53
[2019-08-27 04:36] LABS: HEMATOCRIT 26.2 % (42.0-52.0); HEMOGLOBIN 8.7 gm/dL (14.0-18.0); MCHC 33.4 g/dL (28.0-37.0); MCV 71.8 fL (80.0-100.0); NUCLEATED RBCS 0 /100WBC; PLATELET COUNT* 272 thou/uL (150-400); RBC 3.65 mil/uL (4.50-6.00); RDW-CV 16.9 % (10.5-14.5); WBC 6.7 thou/uL (4.0-11.0)
[2019-08-27 05:03] LABS: CALCIUM 8.7 mg/dL (8.5-10.1); POTASSIUM 4.2 mmol/L (3.5-5.1); TOTAL BILIRUBIN 0.3 mg/dL (<0.1-1.0); TOTAL PROTEIN 6.6 g/dL (6.4-8.2)
[2019-08-27 05:49] LABS: ABSOLUTE LYMPHOCYTES 0.7 thou/uL (0.8-5.3); ABSOLUTE MONOCYTES 0.1 thou/uL (0.0-1.2); ABSOLUTE NEUTROPHILS 5.9 thou/uL (1.6-8.1); PLATELET ESTIMATE ADEQUATE
[2019-08-27 05:50] LABS: ANISOCYTOSIS 1+; HYPOCHROMASIA 1+; MICROCYTES 1+; OVALOCYTES 1+; POIKILOCYTOSIS 1+
--- NOTE | 2019-08-27 06:30 | NUR ---
PATIENT PROGRESSING TOWARDS GOALS: VSS ON 2L O2 NC. PATIENT DENIES PAIN AND DISCOMFORT THIS SHIFT. REMAINS ON HEPARIN GTT PER PROTOCOL. NPO FOR CARDIOLOGY. CALL LIGHT WITHIN REACH
--- NOTE | 2019-08-27 08:03 | CON ---
[address] [address] CONSULTATION Name: THERESE HANSON Room: [address] IN M.R.#: [id number] Admission: 08/26/19 Attend Phys: Jaja Potts Discharge: Date of : 54 Report #: [id number] THIS REPORT FOR: //name// CC: Gordy Vazquez DATE OF SERVICE: 08/26/2019 INDICATION: Chest pain. HISTORY OF PRESENT ILLNESS: The patient is a very pleasant 68-year-old gentleman who is well known to myself. He has had frequent episodes of unstable angina. He has diffuse coronary disease. He recently underwent percutaneous coronary intervention to the mid right coronary artery for an area of in-stent restenosis. The patient returned to the Emergency Room with prolonged chest discomfort described as midsternal and radiating to the left arm. The patient's states that he was pale and diaphoretic and short of breath with increased respiratory rate with this. At the time of interview, he continues to have midsternal chest discomfort radiating to his left arm. By noninvasive studies, he is known to have preserved left ventricular systolic function. PAST MEDICAL HISTORY: 1. Coronary artery disease. 2. Peripheral vascular disease with abdominal aortic aneurysm and aortobifemoral bypass in 2007. 3. Carotid artery stenoses followed by Vascular Surgery. 4. Previous back surgery and hip surgery. 5. History of subdural hematoma, status post sammy drainage years ago. 6. Tonsillectomy. 7. Hypertension. 8. Hyperlipidemia. 9. Recent lung cancer, status post resection. HOME MEDICATIONS: Albuterol p.r.n., aspirin 81 mg daily, Lipitor 40 mg daily, vitamin D 400 units daily, cilostazol 100 mg b.i.d., vitamin B12 at 1000 mcg daily, diltiazem ER 360 mg daily, fish oil 1000 mg b.i.d., Aricept 5 mg daily, Proscar 5 mg daily, folate 1 mg daily, furosemide 40 mg daily, gabapentin 300 mg b.i.d., Imdur 240 mg daily, metoprolol succinate 100 mg b.i.d., Centrum Silver tablets one daily, Nitrostat 0.4 mg sublingual p.r.n., Zyprexa 10 mg at bedtime, Protonix 40 mg b.i.d., K-Dur 20 mEq daily, Effient 10 mg daily, vitamin B6 at 1000 mg as directed, Zantac 300 mg in the evening, ranolazine 1000 mg b.i.d., spironolactone 25 mg b.i.d., Bactrim DS 1 tablet b.i.d., Flomax 0.4 mg b.i.d., [address] [place] [address] CONSULTATION Name: MARGIETHERESEFERNY VALENCIA Room: [address] IN [facility].#: [id number] Admission: 08/26/19 Attend Phys: Jaja Potts Discharge: Date of : 54 Report #: [id number] vitamin B1 at 1000 mg daily, Spiriva 2.5 mcg daily. SOCIAL HISTORY: The patient quit smoking in 2013. He does not drink alcohol. FAMILY HISTORY: The patient's father had heart disease. ALLERGIES: IODINE and MEPERIDINE. PHYSICAL EXAMINATION: VITAL SIGNS: Stable. Blood pressure 121/61, pulse 59 and regular. GENERAL: This is a pleasant gentleman in no distress. Mood and affect appropriate. HEENT: Extraocular muscles intact. Mucous membranes are moist. NECK: Shows no jugular venous distention. There are no carotid bruits. CHEST: Reveals clear lung ledesma. CARDIOVASCULAR: Reveals a regular rhythm without gallop or murmur. ABDOMEN: Reveals normal bowel sounds. EXTREMITIES: Shows no edema. Peripheral pulses palpable. SKIN: Warm and dry. LABORATORY DATA: Reviewed. White blood cell count 8.1, hemoglobin 9.4, platelet count 284,000. MCV is 72. Coags are within normal limits. Sodium 140, potassium 3.6, chloride 104, bicarbonate 25, BUN 18, creatinine 1.2, serum glucose 95. Initial troponin less than 0.06. NT-proBNP 315. Chest x-ray shows no acute cardiopulmonary process. IMPRESSION AND RECOMMENDATIONS: 1. Unstable angina. We will admit the patient for heparin drip with bolus. We will not plan invasive evaluation unless he has significant change in cardiac enzymes. We would plan on anticoagulation with heparin for 2 days. We will adjust medications as tolerated. 2. Coronary artery disease. The patient on adequate medical regimen as outlined above. 3. Dyslipidemia. Continue Lipitor at current dose. The patient has been at goal on this dose. 4. Peripheral vascular disease, presently stable. 5. Hypertension. Blood pressure adequately controlled with current regimen. 6. Chronic diastolic heart failure, presently appears compensated. <ELECTRONICALLY SIGNED> By: Gordy Case MD, [facility] 08/27/19 0803 [id number] Massimo Case MD, FACC /nt
--- NOTE | 2019-08-27 11:38 | NUR ---
MET WITH PT AND TO DISCUSS HOME SITUATION. PT LIVES WITH , SHE DOES ALL THE IADLS. PT IS INDEPENDENT WITH HIS PERSONAL CARE. HE USES CPAP. WAS HERE OVER WEEKEND WITH CARDIAC ISSUES. PT HAS HAD HH IN PAST AND BEEN TO SNF. THEY DENY ANY DC NEEDS AT THIS TIME.
[2019-08-27 12:01] VITALS: BP 150/78
--- NOTE | 2019-08-27 15:30 | NUR ---
Cardiac Rehab. Patient left prior to being seen by Cardiac Rehab staff. Education given to patient and today using the Cardiac Rehab Book and the Heart Healthy Diet Book. Education included, OPCR, signs and sx of chest pain, risk factor modification, medications, cardiac discharge instructions, heart healthy diet, when to call the doctor etc. and patient state satisfaction that all questions answered to their satisfaction. Continues to refuse OPCR.
[2019-08-27 16:09] VITALS: BP 151/69
[2019-08-27 20:00] VITALS: BP 138/68
[2019-08-28] VITALS: BP 131/66
[2019-08-28 04:00] VITALS: BP 129/54
[2019-08-28 04:12] LABS: % SATURATION 4 % (20-39); IRON 14 ug/dL (50-175)
[2019-08-28 07:00] VITALS: BP 127/66
--- NOTE | 2019-08-28 07:00 | NUR ---
PT CALLS OUT APPRORIATELY. ASKS FOR BED ALARM TO BE TURNED OFF PRIOR TO GETTING UP. NO CONFUSION NOTED. UP FREQUENTLY TO URINATE. CALL LIGHT IN REACH. HOURLY ROUNDING FOR SAFETY.
--- NOTE | 2019-08-28 07:40 | NUR ---
PT HAD BLEEDING AROUND IV WITH HEPARIN DRIP -THROUGH GOWN, PJ PANTS, AND SHEETS. STOPPED HEPARIN DRIP. PRESSURE DRESSING APPLIED TO RIGHT AC. CHANGED BED AND GOWN. NOTIFIED DAY RN LAST 2 HEPARIN DRAWS WERE THERAPUTIC.
--- NOTE | 2019-08-28 09:25 | NUR ---
Per marquise Hobson to give Prasurgel and Metoprolol. Pt will be off I&O. Will continue to assess. Dictated by FABIANA Murcia
[2019-08-28 11:00] VITALS: BP 112/57
[2019-08-28 16:00] VITALS: BP 136/71
[2019-08-28 20:00] VITALS: BP 122/52
[2019-08-29 00:16] VITALS: BP 124/59
[2019-08-29 02:43] LABS: HEMATOCRIT 24.5 % (42.0-52.0); HEMOGLOBIN 8.1 gm/dL (14.0-18.0); MCHC 33.1 g/dL (28.0-37.0); MCV 72.4 fL (80.0-100.0); MPV 8.1 fl. (7.2-11.1); RBC 3.39 mil/uL (4.50-6.00); RDW-CV 17.2 % (10.5-14.5); WBC 8.5 thou/uL (4.0-11.0)
[2019-08-29 02:48] LABS: CALCIUM 8.5 mg/dL (8.5-10.1); CREATININE 1.1 mg/dL (0.6-1.3); POTASSIUM 3.6 mmol/L (3.5-5.1)
[2019-08-29 04:00] VITALS: BP 108/61
--- NOTE | 2019-08-29 04:31 | NUR ---
PT REACHED THERAPUTIC LEVEL WITH HEPARIN DRIP AT 0230 NEXT DRAW AT 0830. TOLERATING WELL. NO C/O PAIN OR DISCOMFORT NOTED BY PT. CURRENTLY ALSEEP IN BED WITH CALL LIGHT WITHIN REACH. ALL CURRENT NEEDS HAVE BEEN MET AT THIS TIME.
[2019-08-29 07:00] VITALS: BP 138/63
--- NOTE | 2019-08-29 07:10 | NUR ---
CHANGE OF SHIFT, BEDSIDE REPORT GIVEN PATIENT SEEN AT BEDSIDE, IN BED ASLEEP ASSUMED PATIENT CARE
[2019-08-29 10:22] VITALS: BP 138/63
[2019-08-29] MEDS ORDERED: PROTONIX40 M1 PO (11:24)
[2019-08-29] MEDS ORDERED: ZANTAC 150MG T150 MG PO (11:24)
--- NOTE | 2019-08-29 12:13 | NUR ---
PATIENT DISCHARGED TO HOME IV AND HEART MONITOR REMOVED PERSONAL BELONGINGS RETURNED DISCHARGE INFORMATION GIVEN, ACKNOWLEDGED, SIGNED COPIES GIVEN PATIENT ASSISTED OUT VIA WC IN GOOD CONDITION TO WAITING CAR
== END 2019-08-29 12:15 | disposition home or self-care (01) | DRG 191 ==
LOC: M.ERS 11:15 → M.2W 12:04 → M.TBA-ER 12:04 → M.2W 15:03
PROVIDERS: Family Medicine; Internal Medicine Cardiovascular Disease; ADMIT Internal Medicine
DX: J44.1 Chronic obstructive pulmonary disease with (acute) exacerbation (principal); I25.110 Atherosclerotic heart disease of native coronary artery with unstable angina pectoris; I50.32 Chronic diastolic (congestive) heart failure; E44.1 Mild protein-calorie malnutrition; Z68.41 Body mass index [BMI] 40.0-44.9, adult; I11.0 Hypertensive heart disease with heart failure; I73.9 Peripheral vascular disease, unspecified; F03.90 Unspecified dementia, unspecified severity, without behavioral disturbance, psychotic disturbance, mood disturbance, and anxiety; E78.5 Hyperlipidemia, unspecified; F17.210 Nicotine dependence, cigarettes, uncomplicated; K25.9 Gastric ulcer, unspecified as acute or chronic, without hemorrhage or perforation; R33.9 Retention of urine, unspecified; D50.9 Iron deficiency anemia, unspecified; K21.9 Gastro-esophageal reflux disease without esophagitis; Z95.5 Presence of coronary angioplasty implant and graft; Z88.8 Allergy status to other drugs, medicaments and biological substances; Z91.041 Radiographic dye allergy status; Z82.49 Family history of ischemic heart disease and other diseases of the circulatory system; Z80.1 Family history of malignant neoplasm of trachea, bronchus and lung

== ENCOUNTER 2019-09-12 08:40 | Observation (INO) | payer MEDICARE, OTHER ==
[~2019-09-12] VITALS: Ht 172.7 cm; Wt 86.2 kg
[2019-09-12 08:48] VITALS: BP 126/58
[2019-09-12] MEDS ORDERED: NAMENDA 10 MG T10 MG PO (08:51)
[2019-09-12 08:56] LABS: ABSOLUTE BASOPHILS 0.1 thou/uL (0.0-0.2); ABSOLUTE EOSINOPHILS 0.1 thou/uL (0.0-0.7); ABSOLUTE LYMPHOCYTES 1.2 thou/uL (0.8-5.3); ABSOLUTE MONOCYTES 0.4 thou/uL (0.0-1.2); ABSOLUTE NEUTROPHILS 3.7 thou/uL (1.6-8.1); BASOPHILS 1.3 %; EOSINOPHILS 2.1 %; HEMATOCRIT 26.8 % (42.0-52.0); HEMOGLOBIN 9.3 gm/dL (14.0-18.0); LYMPHOCYTES 22.1 %; MCH 24.9 pg (26.0-34.0); MCHC 34.9 g/dL (28.0-37.0); MCV 71.4 fL (80.0-100.0); MONOCYTES 7.6 %; MPV 6.4 fl. (7.2-11.1); NUCLEATED RBCS 0 /100WBC; PLATELET COUNT* 343 thou/uL (150-400); POLYS 66.9 %; RBC 3.76 mil/uL (4.50-6.00); RDW-CV 16.9 % (10.5-14.5); WBC 5.5 thou/uL (4.0-11.0)
[2019-09-12 09:09] LABS: APTT 29.9 Seconds (25.0-31.3); INR 1.1; PROTIME 11.6 Seconds (9.20-11.50)
[2019-09-12 09:12] LABS: CALCIUM 9.1 mg/dL (8.5-10.1); CREATININE 1.2 mg/dL (0.6-1.3); POTASSIUM 3.8 mmol/L (3.5-5.1)
[2019-09-12 09:27] LABS: ALBUMIN 3.2 g/dL (3.4-5.0); CK-MB MASS 0.6 ng/mL (<0.5-3.6); TOTAL BILIRUBIN 0.5 mg/dL (<0.1-1.0); TOTAL PROTEIN 7.1 g/dL (6.4-8.2)
[2019-09-12 09:39] LABS: ANISOCYTOSIS 2+; PLATELET ESTIMATE ADEQUATE
[2019-09-12 12:49] VITALS: BP 131/66
[2019-09-12 14:00] VITALS: BP 132/71
--- NOTE | 2019-09-12 14:29 | NUR ---
PT RECEIVED HER HOME MEDICATIONS AT HOME THIS AM. SO NO MED GIVEN
--- NOTE | 2019-09-12 15:33 | NUR ---
PT ADMITTED ON TELE FLOOR ON RA. SR ON SIGNAL INTELLIGENCE/ELECTRONIC WARFARE. VSS, DENIES PAIN. R A/C IV S.L. NO COMPLAINT. CALL LIGHT AT REACH. FALL PRECAUTION IN PLACE
[2019-09-12 16:26] VITALS: BP 117/63
--- NOTE | 2019-09-12 17:38 | NUR ---
discahrge ordered. nurse working on dc. iv line our. heart monitor retrieved
[2019-09-12 17:56] VITALS: BP 117/63
--- NOTE | 2019-09-12 18:49 | NUR ---
PT LEFT FLOOR AT 1840 ACCOMPANIED BY AND NURSE STAFF. WITH WHEELCHAIR
--- NOTE | 2019-09-12 19:56 | EKG ---
[place] [address] ELECTROCARDIOGRAM REPORT Name: THERESE HANSON Room: [address]#: [id number] Admission: 09/12/19 Attend Phys: Stone Jones MD Discharge: 09/12/19 Date of : 54 Report #: [id number] THIS REPORT FOR: //name// [facility] ED Test Date: 2019-09-12 Test Time: 08:45:01 Pat Name: THERESE HANSON Department: Room: [facility] Gender: M Emergency Services Professional: TS : 1950 Requested By: Biju Merritt Order Number: [id number] MD: oGrdy Case Measurements Intervals [place] Rate: 55 P: 9 CA: 232 QRS: -12 QRSD: 100 T: 9 QT: 480 QTc: 460 Interpretive Statements Sinus rhythm Prolonged CA interval Minimal ST depression Compared to ECG 08/26/2019 11:20:13 First degree AV block now present ST (T wave) deviation now present Left-axis deviation no longer present Electronically Signed On 09-12-2019 19:56:23 STOCKKEEPER by Gordy Case [email or web address] <ELECTRONICALLY SIGNED> By: Gordy Case MD, FACC 09/12/196 Gordy Case MD, FACC /EPI
== END 2019-09-12 19:00 | disposition home or self-care (01) ==
LOC: M.ERS 08:40 → M.2W 10:54 → M.TBA-ER 10:54 → M.2W 12:56
PROVIDERS: Family Medicine; ADMIT Internal Medicine
DX: R07.89 Other chest pain (principal); I10 Essential (primary) hypertension; F03.90 Unspecified dementia, unspecified severity, without behavioral disturbance, psychotic disturbance, mood disturbance, and anxiety; J44.9 Chronic obstructive pulmonary disease, unspecified; I73.9 Peripheral vascular disease, unspecified; I71.4 Abdominal aortic aneurysm, without rupture; E78.5 Hyperlipidemia, unspecified; Z87.891 Personal history of nicotine dependence

== ENCOUNTER → 2019-09-15 | Outpatient (CLI) | payer MEDICARE, OTHER ==
[~2019-09-15] MED LIST changes: +NAMENDA 10 MG T10 MG PO
--- NOTE | 2019-09-15 17:49 | CARDNUC ---
[place] [address] CARDIAC NUCLEAR IMAGING REPORT Name: THERESE HANSON Room: [facility]#: [id number] Admission: 09/15/19 Attend Phys: Gordy Case, Discharge: Date of : 54 Date of Service: 09/15/19 1749 Report #: [id number] THIS REPORT FOR: //name// APPROVED REPORT Imaging Protocol: Rest Tc-99m/Stress Tc-99m 1 day Study performed: 09/15/2019 12:45:00 Indication: Dyspnea, Chest pain Patient Location: Out-Patient Stress Tech: Sally Salomon Stress Nurse: Marisela Casey RN NM Tech:TUYET Allen Ht: 5 ft 8 in Wt: 190 lbs BSA: 2.00 m2 BMI: 28.88 Medical History Medical History: Angina, AAA, , CAD s/p stent, COPD, Fatigue, Former Smoker, HTN, Hyperlipidemia, PAD, PVD, SOB, Weakness, Lung cancer, Lobectomy. Medications: ASA 81 Mg, Cilostazol, Atorvastatin, Imdur, Ranexa, NTG, Effient, Metoprolol, Lasix, Diltiazem, Spironolactone. Allergies: Contrast Dye, Demerol. Cardiac Risk Factors: Age, FHX of CAD, HTN, Hyperlipidemia, SOB, Past Smoker, PVD, AAA. Previous Cardiac Procedures: PCI Pretest Chest Pain Characteristics: No chest pain Exercise History: Sedentary Physical Disabilities: Unstable gait, Dementia, Weakness. Meds Held (24 hrs): Imdur, Metoprolol, NTG. Resting Data Rest SPECT myocardial perfusion imaging was performed in supine position 30 minutes following the intravenous injection of 10.3 mCi of Tc-99m Sestamibi. Time of rest injection: 1300 Date: 09/15/2019 The images were gated to evaluate regional wall motion and calculate left ventricular ejection fraction. Administration Route: IV Administration Site: Right AC Pharmacologic Stress Pharmacologic stress test was performed by injecting Regadenoson 0.4 mg IV push over 10-15 seconds immediately [place] [address] CARDIAC NUCLEAR IMAGING REPORT Name: THERESE HANSON [id number] Admission: 09/15/19 Attend Phys: Gordy Case, Discharge: Date of : 54 Date of Service: 09/15/19 1749 Report #: [id number] injection of 34.4 mCi of Tc-99m Sestamibi. Time of stress injection: 1420 Date: 09/15/2019 Administration Route: IV Administration Site: Right AC Gated Stress SPECT was performed 40 minutes after stress injection. The images were gated to evaluate regional wall motion and calculate left ventricular ejection fraction. Prone imaging was performed. Stress Test Details Stress Test: Pharmacologic stress testing performed using 0.4 mg of regadenoson per 5 mL given IV over 10 seconds. Reason for pharmacologic stress test: unstable gait, dementia, weakness.. HR Max Heart Rate (APMHR): 154 bpm Resting HR: 56 bpm Target HR (85% APMHR): 130 bpm Max HR Achieved: 82 bpm % of APMHR: 53 Recovery HR: 73 bpm BP Resting BP: 139/66 mmHg Max BP: 153/65 mmHg Recovery BP: 145/63 mmHg ECG Resting ECG: Sinus Rhythm, nonspecific ST-T abnormalities Stress ECG: Sinus Rhythm, nonspecific ST-T abnormalities ST Change: None Arrhythmia: None Recovery ECG: Sinus Rhythm, nonspecific ST-T abnormalities Recovery ST Change: None Recovery Arrhythmia: None Clinical Reason for Termination: Completed protocol Stress Symptoms: Dyspnea. Exercise duration: 00 min 00 sec Exercise capacity: 1.00 METs The patient tolerated Lexiscan infusion without significant cardiac symptoms[place] [address] CARDIAC NUCLEAR IMAGING REPORT Name: THERESE HANSON Room: [facility]#: [id number] Admission: 09/15/19 Attend Phys: Gordy Case, Discharge: Date of : 54 Date of Service: 09/15/19 1749 Report #: [id number] A 68 year old male presented for sitting Lexiscan r/t CP and SOA. Patient was weak and due to dementia, had difficulty following directions. Sitting Lexiscan was well tolerated. Recovery unremarkable with PO caffeine, effective. Patient was escorted by staff to Nuclear Medicine for images. Patient was stable and stated he felt good at that time. Stress ECG Conclusion The baseline 12-lead EKG shows sinus bradycardia with nonspecific ST segment depression diffusely. EKGs obtained during and post Lexiscan infusion show sinus rhythm with no significant ST segment changes when compared to baseline. There were no stress-induced arrhythmias. Study Quality Study: Good Artifact: Mild Diaphragmatic artifact Study Data At rest, the left ventricular ejection fraction was 73%.. Post stress, the left ventricular ejection was 71%.. TID = 0.93. Perfusion Perfusion images obtained in the supine position at rest and post stress show a moderate region of mild photopenia in the inferior wall that resolves completely with post stress prone imaging suggesting diaphragmatic attenuation artifact. No other significant fixed or reversible defects were identified. Wall Motion Normal left ventricular wall motion. Nuclear Conclusion ECG Findings: non-diagnostic Clinical Findings: negative for ischemia Nuclear Findings: negative for ischemia Exercise Capacity: not assessed Left Ventricular Function: normal Risk Study: low Myocardial perfusion images show no defect to suggest infarct or ischemia. Left ventricular systolic function appears normal on gated studies. This is a low risk study. <Conclusion> The baseline 12-lead EKG shows sinus bradycardia with nonspecific ST [address] [address] CARDIAC NUCLEAR IMAGING REPORT Name: THERESE HANSON Room: [facility]#: [id number] Admission: 09/15/19 Attend Phys: Gordy Case, Discharge: Date of : 54 Date of Service: 09/15/19 1749 Report #: [id number] segment depression diffusely. EKGs obtained during and post Lexiscan infusion show sinus rhythm with no significant ST segment changes when compared to baseline. There were no stress-induced arrhythmias. <ELECTRONICALLY SIGNED> By: Gordy Case MD, FACC 09/15/19 [phone] Gordy Case MD, FACC /INF
== END ==
LOC: M.NUC 09-12 16:55
DX: R07.9 Chest pain, unspecified (principal); I25.10 Atherosclerotic heart disease of native coronary artery without angina pectoris; J44.9 Chronic obstructive pulmonary disease, unspecified; I10 Essential (primary) hypertension; E78.5 Hyperlipidemia, unspecified; I73.9 Peripheral vascular disease, unspecified; Z87.891 Personal history of nicotine dependence; Z79.899 Other long term (current) drug therapy

== ENCOUNTER 2019-10-06 11:40 | Inpatient (IN) | payer MEDICARE, OTHER ==
[~2019-10-06] VITALS: Ht 172.7 cm; Wt 85.4 kg
[2019-10-06 11:42] VITALS: BP 109/77
[2019-10-06 12:14] LABS: ABSOLUTE BASOPHILS 0.1 thou/uL (0.0-0.2); ABSOLUTE EOSINOPHILS 0.1 thou/uL (0.0-0.7); ABSOLUTE LYMPHOCYTES 1.5 thou/uL (0.8-5.3); ABSOLUTE MONOCYTES 0.6 thou/uL (0.0-1.2); ABSOLUTE NEUTROPHILS 3.9 thou/uL (1.6-8.1); BASOPHILS 0.9 %; EOSINOPHILS 1.6 %; HEMATOCRIT 28.8 % (42.0-52.0); HEMOGLOBIN 9.3 gm/dL (14.0-18.0); LYMPHOCYTES 24.8 %; MCH 22.7 pg (26.0-34.0); MCHC 32.2 g/dL (28.0-37.0); MCV 70.4 fL (80.0-100.0); MONOCYTES 9.1 %; MPV 7.4 fl. (7.2-11.1); NUCLEATED RBCS 0 /100WBC; PLATELET COUNT* 346 thou/uL (150-400); POLYS 63.6 %; RDW-CV 16.3 % (10.5-14.5); WBC 6.1 thou/uL (4.0-11.0)
[2019-10-06 12:22] LABS: CALCIUM 8.6 mg/dL (8.5-10.1); CREATININE 1.4 mg/dL (0.6-1.3); INR 1.2; POTASSIUM 3.5 mmol/L (3.5-5.1); PROTIME 11.9 Seconds (9.20-11.50)
[2019-10-06 12:32] LABS: ALBUMIN 3.5 g/dL (3.4-5.0); TOTAL BILIRUBIN 0.4 mg/dL (<0.1-1.0); TOTAL PROTEIN 7.4 g/dL (6.4-8.2)
[2019-10-06 12:39] LABS: ANISOCYTOSIS 2+; MICROCYTES 1+; OVALOCYTES 2+
[2019-10-06 12:40] LABS: POLYCHROMASIA 1+
[2019-10-06 18:06] VITALS: BP 114/54
[2019-10-06 20:09] LABS: CHOLESTEROL 115 mg/dL (<200); HDL CHOLESTEROL 44 mg/dL (>40); LDL CHOLESTEROL 55 mg/dL (<100); TC:HDL 2.6 Ratio (Not establshd); TRIGLYCERIDE 83 mg/dL (<150); VLDL 17 mg/dL (<40)
[2019-10-06 20:11] LABS: SERUM ASSESSMENT CLEAR
[2019-10-06 20:19] VITALS: BP 121/62
[2019-10-06 21:24] VITALS: BP 113/64
[2019-10-07] VITALS: BP 110/50
[2019-10-07 04:00] VITALS: BP 116/52
[2019-10-07 04:40] LABS: ABSOLUTE EOSINOPHILS 0.1 thou/uL (0.0-0.7); ABSOLUTE LYMPHOCYTES 1.8 thou/uL (0.8-5.3); ABSOLUTE MONOCYTES 0.8 thou/uL (0.0-1.2); ABSOLUTE NEUTROPHILS 3.9 thou/uL (1.6-8.1); BASOPHILS 0.5 %; EOSINOPHILS 1.6 %; HEMATOCRIT 25.9 % (42.0-52.0); HEMOGLOBIN 8.4 gm/dL (14.0-18.0); MCH 22.9 pg (26.0-34.0); MCHC 32.6 g/dL (28.0-37.0); MCV 70.2 fL (80.0-100.0); MONOCYTES 11.7 %; MPV 7.7 fl. (7.2-11.1); NUCLEATED RBCS 0 /100WBC; PLATELET COUNT* 289 thou/uL (150-400); POLYS 59.2 %; RBC 3.69 mil/uL (4.50-6.00); RDW-CV 16.5 % (10.5-14.5); WBC 6.6 thou/uL (4.0-11.0)
--- NOTE | 2019-10-07 04:53 | NUR ---
ASSUMED CARE OF PT AT 2030. PT IS ALERT AND ORIENTED. VSS. PERRLA. NO COMPLAINTS OF PAIN. PT IS IN SINUS RYTHM. PT IS SLEEPING QUIETLY IN BED. RESPIRATIONS ARE EVEN AND NONLABORED. WILL CONTINUE TO MONITOR PT.
[2019-10-07 04:59] LABS: CALCIUM 8.1 mg/dL (8.5-10.1); CREATININE 1.3 mg/dL (0.6-1.3); TOTAL BILIRUBIN 0.3 mg/dL (<0.1-1.0); TOTAL PROTEIN 6.5 g/dL (6.4-8.2)
[2019-10-07 08:00] VITALS: BP 136/64
--- NOTE | 2019-10-07 09:57 | NUR ---
Pt is A&O. Per , Pt has dementia. Pt is independent with ADLs, completes IADLs. Pt has a cane and walker that he can use for mobility. Pt wears a cpap at night. No hx of HH. Hx of skilled in [facility] in 2010. Goal is home [place], no needs anticipated. Following.
--- NOTE | 2019-10-07 11:30 | CON ---
[address] [address] CONSULTATION Name: THERESE HANSON Room: [address] IN M.R.#: [id number] Admission: 10/06/19 Attend Phys: Jaja Potts Discharge: Date of : 54 Report #: [id number] THIS REPORT FOR: //name// CC: Gordy Vazquez INDICATION: Chest pain consistent with angina. HISTORY OF PRESENT ILLNESS: The patient is a very pleasant 68-year-old gentleman who is well known to myself. He has coronary artery disease with multiple interventions to the right coronary artery over the past several years. He had stent placement to the mid right coronary artery in August of this year. He has had recurrence of his mid sternal chest discomfort. His history is a little complicated by underlying Korsakoff syndrome. His is the provider of the history. Apparently while walking in the store today, he had significant midsternal chest discomfort, which doubled him over and he had significant shortness of breath. The patient was transferred to the Emergency Room for further treatment where he received aspirin and nitroglycerin. At the time of my interview, he is pain free. Initial enzymes are unremarkable. EKG did not show any acute ST elevation. We have placed him on multiple medications for aggressive treatment of his angina. Recently, he has been having more frequent and more severe episodes of chest pain. PAST MEDICAL HISTORY: 1. Coronary artery disease with multiple percutaneous coronary interventions to the right coronary artery as outlined above. 2. Abdominal aortic aneurysm without rupture. 3. Essential hypertension. 4. Hyperlipidemia. 5. Korsakoff syndrome. 6. Orthostatic hypotension. 7. Peripheral neuropathy. 8. Peripheral vascular disease. 9. Thoracic aneurysm without rupture. PAST SURGICAL HISTORY: 1. Aortobifemoral bypass in 2007. 2. Back surgery. 3. Gastric bypass. 4. Hip fracture, left in 2007. 5. Tonsillectomy and adenoidectomy. 6. [place] [address] CONSULTATION Name: THERESE HANSON Room: [address]#: [id number] Admission: 10/06/19 Attend Phys: Jaja Potts Discharge: Date of : 54 Report #: [id number] FAMILY HISTORY: Positive for coronary artery disease. SOCIAL HISTORY: The patient quit smoking in 2013. He does not drink alcohol. There is a history of alcohol use in the past. PHYSICAL EXAMINATION: VITAL SIGNS: Stable. Blood pressure 99/55, heart rate is 42 and regular. GENERAL: This is a pleasant gentleman in no distress. Mood and affect appropriate. HEENT: The patient is wearing glasses. Extraocular muscles intact. Mucous membranes are moist. NECK: Shows no jugular venous distention. There are no carotid bruits. CHEST: Reveals clear lung ledesma. I do not appreciate wheezes or rales. CARDIOVASCULAR: Reveals a bradycardic rate with a regular rhythm. There is normal S1 and S2. I do not appreciate gallop or murmur. ABDOMEN: Reveals normal bowel sounds. The abdomen is soft and nontender. EXTREMITIES: Shows no edema. SKIN: Warm and dry. DIAGNOSTIC STUDIES: A 12-lead EKG shows sinus bradycardia without acute ST or T-wave abnormality. LABORATORY DATA: Reviewed. Troponin less than 0.06. IMPRESSION AND RECOMMENDATIONS: 1. Chest pain consistent with unstable angina. At this point in time, we will proceed with invasive evaluation and coronary angiography. Further intervention pending those results. We will continue current cardiac regimen as outlined above. 2. Hyperlipidemia. Continue current dose atorvastatin. 3. Hypertension. Blood pressure low normal presently, we will follow clinically. 4. Bradycardia secondary to cardiac medications. We will follow clinically. <ELECTRONICALLY SIGNED> By: Gordy Case MD, FACC 10/07/19 1130 1455 [id number] Case MD, FACC /nt
[2019-10-07 13:01] VITALS: BP 132/66
--- NOTE | 2019-10-07 13:11 | EKG ---
[place] [address] ELECTROCARDIOGRAM REPORT Name: THERESE HANSON Room: [address] ADM IN M.R.#: [id number] Admission: 10/06/19 Attend Phys: Jaja Potts Discharge: Date of : 54 Report #: [id number] THIS REPORT FOR: //name// [facility] ED Test Date: 2019-10-06 Test Time: 11:47:17 Pat Name: THERESE HANSON Department: Room: [facility] Gender: M Acquisition Professional: : 1950 Requested By: Walker De La Torre Order Number: [id number] MD: Cade Browne Measurements Intervals [place] Rate: 44 P: 19 LA: 240 QRS: -26 QRSD: 101 T: 29 QT: 528 QTc: 452 Interpretive Statements Sinus bradycardia Prolonged LA interval Borderline left axis deviation Minimal ST depression, diffuse leads Compared to ECG 09/12/2019 08:45:01 ST (T wave) deviation still present Electronically Signed On 10-07-2019 13:10:33 [employer] by Cade Browne [email or web address] <ELECTRONICALLY SIGNED> By: Cade Browne MD, FACC 10/07/19 1310 1147 [id number] Cade Browne MD, [facility] /EPI
--- NOTE | 2019-10-07 16:37 | 2DMMODE ---
[place] [address] 2 D/M-MODE ECHOCARDIOGRAM Name: THERESE HANSON Room: [address] IN .R.#: [id number] Admission: 10/06/19 Attend Phys: Jose Vazquez Discharge: Date of : 54 Date of Service: 10/07/19 1637 Report #: [id number] THIS REPORT FOR: //name// ADDENDUM APPROVED REPORT Study performed: 10/07/2019 15:45:19 EXAM: Comprehensive 2D, Doppler, and color-flow Echocardiogram Patient Location: Bedside BSA: 2.00 HR: 59 bpm BP: 136/64 mmHg Other Information Study Quality: Fair Indications CAD 2D Dimensions IVSd: 21.78 (7-11mm) LVOT Diam: 19.15 (18-24mm) LVDd: 44.53 mm PWd: 14.59 (7-11mm) Ascending Ao: 28.39 (22-36mm) LVDs: 34.26 (25-40mm) Aortic Root: 28.23 mm Volumes Left Atrial Volume (Systole) LA ESV Index: 28.30 mL/m2 Aortic Valve AoV Peak Chaparro.: 1.25 m/s AO Peak Gr.: 6.33 mmHg LVOT Max P.78 mmHg AO Mean Gr.: 3.50 mmHg LVOT Mean P.34 mmHg LVOT Max V: 0.83 m/s AO V2 VTI: 27.00 cm LVOT Mean V: 0.54 m/s XIN (VTI): 1.85 cm2 LVOT V1 VTI: 20.34 cm Mitral Valve E/A Ratio: 0.76 MV Decel. Time: 324.26 ms MV E Max Chaparro.: 0.81 m/s MV PHT: 94.03 ms MVA (PHT): 2.34 [place]2 [place] [address] 2 D/M-MODE ECHOCARDIOGRAM Name: THERESE HANSON Room: [address] IN [facility].#: [id number] Admission: 10/06/19 Attend Phys: Jose Vazquez Discharge: Date of : 54 Date of Service: 10/07/19 1637 Report #: [id number] TDI E/Lateral E': 10.13 E/Medial E': 11.57 Medial E' Chaparro.: 0.07 m/s Lateral E' Chaparro.: 0.08 m/s Pulmonary Valve PV Peak Chaparro.: 0.91 m/s PV Peak Gr.: 3.34 mmHg Tricuspid Valve RAP Estimate: 5.00 mmHg TR Peak Gr.: 15.11 mmHg RVSP: 20.11 mmHg PA Pressure: 20.11 mmHg Left Ventricle The left ventricle is normal size. There is normal LV segmental wall motion. Mild concentric left ventricular hypertrophy. Left ventricular systolic function is normal. The left ventricular ejection fraction is within the normal range. LVEF is 60-65%. Grade I - abnormal relaxation pattern. Right Ventricle The right ventricle is normal size. The right ventricular systolic function is normal. Atria Left atrium is mildly dilated. The right atrium size is normal. Aortic Valve The Aortic valve is sclerotic. No aortic regurgitation is present. There is no aortic valvular stenosis. Mitral Valve There is mitral annular calcification. There is no mitral valve regurgitation noted. No evidence of mitral valve stenosis. Tricuspid Valve The tricuspid valve is normal in structure. Trace tricuspid regurgitation. Pulmonic Valve The pulmonary valve is normal in structure. There is no pulmonic valvular regurgitation[place] [address] 2 D/M-MODE ECHOCARDIOGRAM Name: MARGIE,THERESE ERIK Room: [address]#: [id number] Admission: 10/06/19 Attend Phys: Jose Vazquez Discharge: Date of : 54 Date of Service: 10/07/19 1637 Report #: [id number] The aortic root is normal in size. IVC is normal in size and collapses >50% with inspiration. Pericardium There is no pericardial effusion. <Conclusion> Mild concentric left ventricular hypertrophy. LVEF is 60-65%. The Aortic valve is sclerotic. Left atrium is mildly dilated. <ELECTRONICALLY SIGNED> By: Cade Browne MD, FACC 10/07/19 [phone] Cade Browne MD, FACC /INF
[2019-10-07 18:17] VITALS: BP 115/73
--- NOTE | 2019-10-07 18:39 | NUR ---
XIOMARA RESTING IN BED. UP WITH STANDBY ASSISTANCE. AOX2 AND VERY FORGETFUL. AWAITING CARDIAC CATHETERIZATION ON Sunday10/09/2019. VSS. HANDY BENITEZ COMPLETED FOR XIOM[place] SAFETY
[2019-10-07 19:50] VITALS: BP 101/39
[2019-10-08] VITALS: BP 105/56
--- NOTE | 2019-10-08 03:54 | NUR ---
ASSUMED CARE OF PT AT 1900. PT IS ALERT AND ORIENTED. VSS. PERRLA. NO COMPLAINTS OF PAIN. PT IS IN SINUS BRADYCARDIA. PT IS SLEEPING COMFORTABLY IN BED. RESPIRATIONS ARE EVEN AND NONLABORED. WILL CONTINUE TO MONITOR PT.
[2019-10-08 04:00] VITALS: BP 104/54
[2019-10-08 07:28] VITALS: BP 116/60
[2019-10-08 12:00] VITALS: BP 109/48
[2019-10-08 16:00] VITALS: BP 127/67
--- NOTE | 2019-10-08 17:12 | NUR ---
PATINET RESTING IN BED. VSS. PATINET UP WITH ASSIST X1. 2L PER NASAL CANULA. BIPAP SET FOR HS USE. A0X2 AND FORGETFUL WITH DEMENTIA. HOURLY ROUNDING COMPLETED FOR PATIENT SAFETY.
[2019-10-08 20:00] VITALS: BP 128/57
[2019-10-09] VITALS (13 sets, daily range): BP systolic 100–139; BP diastolic 56–82
--- NOTE | 2019-10-09 07:00 | NUR ---
PROGRESSING TOWARDS GOALS, RESTING QUIETLY WITH EYES CLOSED MOST OF NOC, EASILY AROUSABLE TO VERBAL STIMULI, DENIES CP OR DISCOMFORT, CPAP ON DURING NOC, DENIES SOA OR DIFFICULTY BREATHING, NPO AFTER MIDNIGHT FOR AM HEART CATHETERIZATION, SB-SR WITH 1DEGREE AVB TRACING BATTERY FILLER, CALL LIGHT IN REACH, BED REMAINS IN LOW AND LOCKED POSITON.
--- NOTE | 2019-10-09 12:20 | NUR ---
ASSUMED CARE OF PATIENT THIS AM AT 0730. PATIENT IS ALERT AND ORIENTED X 4. HE DENIES PAIN AND DISCOMFORT. PATIENT TAKEN TO SHIPPING COORDINATOR PER BED THIS AM AND RETURNED. RIGHT GROIN SITE IS SLOWLY OOZING BLOOD. DRESSING CHANGED 1 TIME SINCE RETURN TO THE ROOM. PATIENT'S VSS. SEE POST CATH ASSESSMENTS. TELE SHOWS SR WITH A 1DAVB. PATIENT'S IS IN AT THE BEDSIDE. WILL CONTINUE TO MONITOR.
[2019-10-09] MEDS ORDERED: DILTIAZEM 24HR180 M1 PO (14:55)
--- NOTE | 2019-10-10 12:43 | CARD ---
[address] [address] CARDIAC CATH REPORT Name: THERESE HANSON Room: [address] IN [facility]#: [id number] Admission: 10/06/19 Attend Phys: Jaja Potts Discharge: 10/09/19 Date of : 54 Report #: [id number] THIS REPORT FOR: //name// APPROVED REPORT Study performed: 10/09/2019 07:37:50 Patient Details Patient Status: In-Patient Room #: The patient is a 68 year-old male Event Personnel Gordy Case Contract Loader, Twin Lopez Floor Layer Apprentice, Eva Calhoun Production Ski Repairer, Sandra Henry Production Ski Repairer, Caio Strickland RTR Scrub, Rosy Rios RTR Scrub, Madeleine Wesley RTR Monitor Procedures Performed Art Access - R femoral artery, Left Heart Cath w/or w/o Coronaries LHC, PTCA Single Vessel RCA PCISINGLE , Hemostasis w/ Angioseal Admission/Lab Medications/Medications given during procedure Solumedrol IV 125 mg, Benadryl IV 50 mg, Angiomax IV 13 ml, Angiomax Drip IV 29.19 ml per hr, Effient PO 60 mg, Aspirin PO 162 mg Procedure Narrative The patient was brought electively to the Cardiac Catheterization Laboratory and was prepped and draped in a sterile manner. The right femoral was infiltrated with 2% Lidocaine subcutaneous anesthesia. A 6F [place] sheath was inserted into the right femoral artery. Coronary angiography was performed using coronary diagnostic catheters. The right coronary system was accessed and visualized with a 6F JR4 catheter. The left coronary system was accessed and visualized with a 6F JL4 catheter. The left ventricle was accessed and visualized with a 6F Pigtail catheter. Closure device was deployed with a 6 Fr Angioseal. The patient tolerated the procedure well and there were no complications associated with the procedure. Intraoperative Conscious Sedation Sedation start time: 08:39 Case end Time: 09:45 Fentanyl 25 mcg Versed 1 [place] [address] CARDIAC CATH REPORT Name: THERESE HANSON Room: [address]#: [id number] Admission: 10/06/19 Attend Phys: Jaja Potts Discharge: 10/09/19 Date of : 54 Report #: [id number] Fluoro Time: 18.4 minutes Dose: DAP [id number] cGycm2 2573 mGy Contrast Type and Amount: Visipaque 230 ml Coronary Angiography The patient's coronary anatomy is right dominant. Diagnostic Cath Left Main The left main is short and bifurcates into a left anterior descending, intermediate ramus and circumflex coronary artery. LAD The left anterior descending has a 40% ostial narrowing with mild plaquing distal to this. The remainder of the vessel appears to be free of significant disease. Diagonal 1 A first diagonal branch appears free of significant disease. Circumflex The circumflex coronary artery is large in caliber and mildly plaqued proximally. OM1 A large branched first obtuse marginal branch has proximal 40% narrowing proximally. Right Coronary The right coronary artery is a large vessel that has stents from the ostium to distal right coronary artery. There appears to be some 70-80% in-stent hazy narrowing in the mid to distal portion of the stented vessel. R PDA The PDA appears diffusely disease with 90% narrowing distally. RPLV A large posterior lateral branch is diffusely disease with a 70% mid and 80% distal narrowing noted. Ramus A small intermediate ramus branch is free of significant disease. Left Ventriculography Left Ventriculography was not performed. Hemodynamics The aortic pressure is 148/49 mmHg with a mean of 61 mmHg. The left ventricular pressure is 137/1 mmHg with a mean of mmHg. The left ventricular end diastolic pressure is 13 mmHg. PCI Technique Lesion Anticoagulation was achieved with Angiomax. Patient was preloaded with Angiomax IV 13 ml. Percutaneous coronary intervention was performed on the mid right coronary artery. The lesion stenosis prior to intervention was 80% with ALLIE 3 flow. A 6FR XBRCA Guide Catheter was used to engage the ostium. A BMW 190cm [place] [address] CARDIAC CATH REPORT Name: THERESE HANSON Room: [address] IN [facility].#: [id number] Admission: 10/06/19 Attend Phys: Jaja Potts Discharge: 10/09/19 Date of : 54 Report #: [id number] was used to cross the lesion. BALLOON DILATION A Balloon catheter NC Trek RX 2.75 X 12 was inserted and inflated up to 18atm for 16seconds. Additional Inflation: 18atm for 13seconds. Additional Inflation: 18atm for 10seconds. Final angiography reveals 20 % stenosis with ALLIE 3 flow. Conclusion 1. Significant coronary artery disease involving primarily the right coronary artery as outlined above. 2. In-stent restenosis noted in the mid to distal right coronary artery. 3. Minimally elevated left jugular end-diastolic pressure. 4. Successful PTCA of the 80% mid to distal right coronary stenosis with 20% residual narrowing and ALLIE-3 flow to the distal vessel Recommendations 1. Continue aggressive risk factor modification. 2. Percutaneous coronary intervention to the mid and distal right coronary in-stent restenosed areas. Diagnostic Cath Approved by: Gordy Case MD Date/Time: 10/10/2019 12:42:48 <ELECTRONICALLY SIGNED> By: Twin Lopez MD, FACC 10/10/19 1243 1243 [id number] Lopez MD, FACC /INF
== END 2019-10-09 18:51 | disposition home or self-care (01) | DRG 251 ==
LOC: M.ERS 11:40 → M.2W 14:09 → M.TBA-ER 14:09 → M.2W 19:57
PROVIDERS: Emergency Medicine; ADMIT Internal Medicine
PROC: 4A023N7 Measurement of Cardiac Sampling and Pressure, Left Heart, Percutaneous Approach (ICD-10-PCS; principal; 2019-10-09)
PROC: B211YZZ Fluoroscopy of Multiple Coronary Arteries using Other Contrast (ICD-10-PCS; principal; 2019-10-09)
PROC: 02703ZZ Dilation of Coronary Artery, One Artery, Percutaneous Approach (ICD-10-PCS; principal; 2019-10-09)
DX: T82.855A Stenosis of coronary artery stent, initial encounter (principal); I25.110 Atherosclerotic heart disease of native coronary artery with unstable angina pectoris; F03.90 Unspecified dementia, unspecified severity, without behavioral disturbance, psychotic disturbance, mood disturbance, and anxiety; E78.5 Hyperlipidemia, unspecified; R00.1 Bradycardia, unspecified; J44.9 Chronic obstructive pulmonary disease, unspecified; G47.33 Obstructive sleep apnea (adult) (pediatric); F04 Amnestic disorder due to known physiological condition; T46.5X5A Adverse effect of other antihypertensive drugs, initial encounter; Y83.8 Other surgical procedures as the cause of abnormal reaction of the patient, or of later complication, without mention of misadventure at the time of the procedure; E87.6 Hypokalemia; I12.9 Hypertensive chronic kidney disease with stage 1 through stage 4 chronic kidney disease, or unspecified chronic kidney disease; N18.9 Chronic kidney disease, unspecified; I73.9 Peripheral vascular disease, unspecified; Z88.8 Allergy status to other drugs, medicaments and biological substances; Z91.041 Radiographic dye allergy status; Y92.89 Other specified places as the place of occurrence of the external cause; Z79.82 Long term (current) use of aspirin; Z80.1 Family history of malignant neoplasm of trachea, bronchus and lung; Z82.49 Family history of ischemic heart disease and other diseases of the circulatory system

== ENCOUNTER → 2019-11-27 | Outpatient (CLI) | payer MEDICARE, OTHER ==
[~2019-11-27] MED LIST changes: +DILTIAZEM 24HR180 M1 PO
[2019-11-27 09:31] LABS: ABSOLUTE BASOPHILS 0.1 thou/uL (0.0-0.2); ABSOLUTE EOSINOPHILS 0.1 thou/uL (0.0-0.7); ABSOLUTE LYMPHOCYTES 1.3 thou/uL (0.8-5.3); ABSOLUTE MONOCYTES 0.5 thou/uL (0.0-1.2); BASOPHILS 1.1 %; EOSINOPHILS 2.9 %; HEMATOCRIT 26.6 % (42.0-52.0); HEMOGLOBIN 8.4 gm/dL (14.0-18.0); MCH 21.1 pg (26.0-34.0); MCHC 31.6 g/dL (28.0-37.0); MCV 66.8 fL (80.0-100.0); NUCLEATED RBCS 0 /100WBC; PLATELET COUNT* 336 thou/uL (150-400); RBC 3.99 mil/uL (4.50-6.00); RDW-CV 17.8 % (10.5-14.5); WBC 5.1 thou/uL (4.0-11.0)
[2019-11-27 09:55] LABS: BURR CELLS 1+; HYPOCHROMASIA 2+; MICROCYTES 2+; PLATELET ESTIMATE ADEQUATE
[2019-11-27 09:56] LABS: ANISOCYTOSIS 2+; OVALOCYTES 1+
== END ==
LOC: M.LAB 09:01
PROVIDERS: Internal Medicine Cardiovascular Disease
DX: I25.118 Atherosclerotic heart disease of native coronary artery with other forms of angina pectoris (principal); I10 Essential (primary) hypertension

== ENCOUNTER → 2020-02-17 | Outpatient (CLI) | payer MEDICARE, OTHER ==
[2020-02-17 08:51] LABS: CALCIUM 8.8 mg/dL (8.5-10.1); CREATININE 1.2 mg/dL (0.6-1.3); POTASSIUM 4.2 mmol/L (3.5-5.1)
[2020-02-17 08:54] LABS: ALBUMIN 3.6 g/dL (3.4-5.0); PHOSPHORUS* 3.9 mg/dL (2.5-4.9)
== END ==
LOC: M.LAB 08:00 → M.CT 09:00
PROVIDERS: Surgery
DX: K57.30 Diverticulosis of large intestine without perforation or abscess without bleeding (principal); K80.80 Other cholelithiasis without obstruction; I71.4 Abdominal aortic aneurysm, without rupture; N18.6 End stage renal disease; J90 Pleural effusion, not elsewhere classified; J98.11 Atelectasis

== ENCOUNTER → 2020-05-25 | Outpatient (CLI) | payer MEDICARE, OTHER ==
[2020-05-25 09:08] LABS: ABSOLUTE BASOPHILS 0.1 thou/uL (0.0-0.2); ABSOLUTE EOSINOPHILS 0.1 thou/uL (0.0-0.7); ABSOLUTE LYMPHOCYTES 1.3 thou/uL (0.8-5.3); ABSOLUTE MONOCYTES 0.6 thou/uL (0.0-1.2); ABSOLUTE NEUTROPHILS 4.2 thou/uL (1.6-8.1); BASOPHILS 1.1 %; EOSINOPHILS 1.1 %; HEMATOCRIT 29.1 % (42.0-52.0); HEMOGLOBIN 9.2 gm/dL (14.0-18.0); LYMPHOCYTES 21.2 %; MCH 20.1 pg (26.0-34.0); MCHC 31.6 g/dL (28.0-37.0); MCV 63.7 fL (80.0-100.0); MONOCYTES 9.1 %; MPV 7.3 fl. (7.2-11.1); NUCLEATED RBCS 0 /100WBC; PLATELET COUNT* 354 thou/uL (150-400); POLYS 67.5 %; RBC 4.57 mil/uL (4.50-6.00); RDW-CV 19.9 % (10.5-14.5); WBC 6.2 thou/uL (4.0-11.0)
[2020-05-25 09:13] LABS: ALBUMIN 3.9 g/dL (3.4-5.0); ALKALINE PHOSPHATASE 89 U/L (46-116); ANION GAP 10 mmol/L (7-16); BUN 12 mg/dL (7-18); CALCIUM 8.8 mg/dL (8.5-10.1); CHLORIDE 100 mmol/L (98-107); CO2 28 mmol/L (21-32); CREATININE 1.3 mg/dL (0.6-1.3); GLUCOSE 112 mg/dL (70-99); POTASSIUM 3.9 mmol/L (3.5-5.1); SGOT 11 U/L (15-37); SGPT 16 U/L (30-65); SODIUM 138 mmol/L (136-145); TOTAL BILIRUBIN 0.4 mg/dL (<0.1-1.0); TOTAL PROTEIN 7.7 g/dL (6.4-8.2)
[2020-05-25 10:13] LABS: AMMONIA < 10 umol/L (11-32)
[2020-05-25 10:38] LABS: ESR (SEDRATE) 17 mm/hr (0-20)
[2020-05-26 02:06] LABS: GLYCOHEMOGLOBIN (HGB A1C) 5.4 % (4.8-5.6)
[2020-05-26 14:07] LABS: ANA INTERPRETATION Negative (Negative)
[2020-05-27 17:07] LABS: GLOBULIN TOTAL 3.1 g/dL (2.2-3.9); M-SPIKE Not Observed g/dL (Not Observed)
== END ==
LOC: M.LAB 08:16
PROVIDERS: ATTEND Nurse Practitioner
DX: R41.3 Other amnesia (principal); I10 Essential (primary) hypertension; Z86.73 Personal history of transient ischemic attack (TIA), and cerebral infarction without residual deficits; Z79.899 Other long term (current) drug therapy

== ENCOUNTER → 2020-06-03 | Outpatient (CLI) | payer MEDICARE, OTHER | LOC: M.LAB 10:22 | PROVIDERS: ATTEND Psychiatry & Neurology Neurology | DX: R41.3 Other amnesia (principal); I10 Essential (primary) hypertension; Z86.73 Personal history of transient ischemic attack (TIA), and cerebral infarction without residual deficits ==

== ENCOUNTER → 2020-11-04 | Outpatient (CLI) | payer MEDICARE, OTHER ==
[2020-11-04 09:26] LABS: ABSOLUTE BASOPHILS 0.1 thou/uL (0.0-0.2); ABSOLUTE EOSINOPHILS 0.1 thou/uL (0.0-0.7); ABSOLUTE LYMPHOCYTES 1.4 thou/uL (0.8-5.3); ABSOLUTE MONOCYTES 0.7 thou/uL (0.0-1.2); ABSOLUTE NEUTROPHILS 4.4 thou/uL (1.6-8.1); EOSINOPHILS 1.4 %; HEMATOCRIT 28.6 % (42.0-52.0); HEMOGLOBIN 8.9 gm/dL (14.0-18.0); LYMPHOCYTES 20.9 %; MCH 20.4 pg (26.0-34.0); MCHC 31.1 g/dL (28.0-37.0); MCV 65.4 fL (80.0-100.0); MONOCYTES 10.1 %; MPV 7.2 fl. (7.2-11.1); NUCLEATED RBCS 0 /100WBC; PLATELET COUNT* 327 thou/uL (150-400); POLYS 66.6 %; RBC 4.37 mil/uL (4.50-6.00); RDW-CV 19.3 % (10.5-14.5); WBC 6.6 thou/uL (4.0-11.0)
[2020-11-04 09:41] LABS: ALBUMIN 3.6 g/dL (3.4-5.0); ALKALINE PHOSPHATASE 90 U/L (46-116); ANION GAP 8 mmol/L (7-16); BUN 8 mg/dL (7-18); CALCIUM 9.2 mg/dL (8.5-10.1); CHLORIDE 103 mmol/L (98-107); CHOLESTEROL 98 mg/dL (<200); CO2 26 mmol/L (21-32); CREATININE 1.2 mg/dL (0.6-1.3); GLUCOSE 108 mg/dL (70-99); HDL CHOLESTEROL 48 mg/dL (>40); LDL CHOLESTEROL 29 mg/dL (<100); POTASSIUM 4.1 mmol/L (3.5-5.1); SGOT 11 U/L (15-37); SGPT 16 U/L (30-65); SODIUM 137 mmol/L (136-145); TOTAL BILIRUBIN 0.4 mg/dL (<0.1-1.0); TOTAL PROTEIN 7.3 g/dL (6.4-8.2); TRIGLYCERIDE 108 mg/dL (<150); VLDL 22 mg/dL (<40)
[2020-11-04 09:42] LABS: SERUM ASSESSMENT Clear
[2020-11-04 09:47] LABS: ANISOCYTOSIS 3+; MICROCYTES 2+
[2020-11-04 09:48] LABS: PLATELET ESTIMATE ADEQUATE
[2020-11-05 16:07] LABS: % FREE PSA 0 % (()); FREE PSA 0.02 ng/mL
== END ==
LOC: M.LAB 08:59
DX: Z12.5 Encounter for screening for malignant neoplasm of prostate (principal); E78.5 Hyperlipidemia, unspecified; I10 Essential (primary) hypertension; F10.10 Alcohol abuse, uncomplicated; F04 Amnestic disorder due to known physiological condition; G25.0 Essential tremor; I71.4 Abdominal aortic aneurysm, without rupture; C34.90 Malignant neoplasm of unspecified part of unspecified bronchus or lung; Z68.30 Body mass index [BMI] 30.0-30.9, adult

== ENCOUNTER → 2021-02-22 | Outpatient (CLI) | payer MEDICARE, OTHER ==
[2021-02-22 09:58] LABS: CREATININE 1.2 mg/dL (0.6-1.3)
== END ==
LOC: M.LAB 08:53 → M.CT 11:00
PROVIDERS: ATTEND Surgery
DX: K57.30 Diverticulosis of large intestine without perforation or abscess without bleeding (principal); N28.1 Cyst of kidney, acquired; I70.8 Atherosclerosis of other arteries; I70.0 Atherosclerosis of aorta; I71.4 Abdominal aortic aneurysm, without rupture